=== PATIENT | male | born 1975 | race Caucasian/White ===

== ENCOUNTER 2020-07-29 18:17 | Observation (INO) | payer OTHER ==
--- NOTE | 2020-07-29 18:34 | ED ---
SOB HPI - General Chief Complaint: Shortness of Breath Stated Complaint: Chest Pain Time Seen by Provider: 07/29/20 18:30 Source: patient, RN notes reviewed, old records reviewed Mode of arrival: wheelchair Limitations: no limitations - History of Present Illness Initial Comments: his is a 45-year-old male DF patient Dese for evaluation of persistent shortness of breath worse when he is moving worse when he is walking worse with activity. Symptoms of been off for a couple months with multiple evaluations, patient unsure cause. Patient also developed fever recently. No significant chest pain. Otherwise no recent travel history or sick contacts no inpatient admission MD Complaint: shortness of breath, cough, anxiety -: days(s) Severity: severe Severity scale (1-10): 8 Quality: dull Consistency: constant Improves With: nothing Worsens With: lying flat, exertion, movement Known History Of: congestive heart failure Context: recent URI, anxiety, recent illness Associated Symptoms: chest pain, pain with inspiration, diaphoresis Treatments Prior to Arrival: none - Related Data Home Medications Medication Instructions Recorded Confirmed Benazepril [Lotensin] 10 mg PO DAILY 08/08/17 07/29/20 Bisoprolol-Hctz 5-6.25 mg [Ziac 1 tab PO DAILY 08/08/17 07/29/20 5-6.25 MG] Albuterol Inhaler [Ventolin Hfa 2 puff INHALATION RT-QID PRN 07/29/20 07/29/20 Inhaler] Montelukast Sodium [Singulair] 10 mg PO DAILY 07/29/20 07/29/20 Previous Rx's Medication Instructions Recorded Azithromycin [Zithromax] 500 mg PO DAILY@2100 5 Days #5 tab 07/31/20 Bumetanide [BUMEX] 1 mg PO BID@0900,1600 #60 tab 07/31/20 Cephalexin [Keflex] 500 mg PO QID #40 cap 07/31/20 Allergies Allergy/AdvReac Type Severity Reaction Status Date / Time furosemide [From Lasix] Allergy Rash/Hives Verified 07/29/20 21:16 Sulfa (Sulfonamide Allergy Rash/Hives Verified 07/29/20 21:16 Antibiotics) torsemide Allergy Rash/Hives Verified 07/29/20 21:16 Review of Systems ROS Statement: Those systems with pertinent positive or pertinent negative responses have been documented in the HPI. ROS Other: All systems not noted in ROS Statement are negative. Past Medical History Past Medical History: Hypertension, Sleep Apnea/CPAP/BIPAP Additional Past Medical History / Comment(s): pulmonary hypertension History of Any Multi-Drug Resistant Organisms: None Reported Past Surgical History: No Surgical Hx Reported Past Psychological History: No Psychological Hx Reported Smoking Status: Former smoker Past Alcohol Use History: Occasional Past Drug Use History: None Reported General Exam Limitations: no limitations General appearance: alert, in no apparent distress Head exam: Present: atraumatic, normocephalic, normal inspection Eye exam: Present: normal appearance, PERRL, EOMI. Absent: scleral icterus, conjunctival injection, periorbital swelling ENT exam: Present: normal exam, mucous membranes moist Neck exam: Present: normal inspection. Absent: tenderness, meningismus, lymphadenopathy Respiratory exam: Present: respiratory distress, rhonchi, accessory muscle use, decreased breath sounds, prolonged expiratory. Absent: wheezes, rales, stridor Cardiovascular Exam: Present: normal rhythm, tachycardia, normal heart sounds. Absent: systolic murmur, diastolic murmur, rubs, gallop, clicks GI/Abdominal exam: Present: soft, normal bowel sounds. Absent: distended, tenderness, guarding, rebound, rigid Extremities exam: Present: normal inspection, full ROM, normal capillary refill. Absent: tenderness, pedal edema, joint swelling, calf tenderness Back exam: Present: normal inspection Neurological exam: Present: alert, oriented X3, CN II-XII intact Psychiatric exam: Present: normal affect, normal mood Skin exam: Present: warm, dry, intact, normal color. Absent: rash Course Vital Signs 07/29/20 07/29/20 07/29/20 18:21 20:31 20:33 Temperature 100.4 F H 99.5 F Pulse Rate 87 72 75 Pulse Rate [ Right] Respiratory 18 20 Rate Blood Pressure 169/94 159/86 Blood Pressure [Right Arm] O2 Sat by Pulse 95 93 L Oximetry 07/29/20 07/29/20 20:48 21:03 Temperature 98.9 F Pulse Rate 74 Pulse Rate [ 91 Right] Respiratory 20 Rate Blood Pressure Blood Pressure 151/77 [Right Arm] O2 Sat by Pulse 90 L Oximetry - Reevaluation(s) Reevaluation #1: medical records reviewed Patient still significantly short of breath here in the ER spoke with patient regarding findings and results, questions answered - Consultations Consultation #1: spoke with Dr. Muñoz agrees to admit the patient Medical Decision Making - Medical Decision Making 45 male persistent shortness of breath history of same. Patient is multiple evaluations in the past for shortness of breath, worsen prior with positive fever. Patient be admitted, pneumonia CHF exacerbation pulmonary edema - Lab Data Result diagrams: 07/29/20 18:42 07/31/20 09:47 Lab Results 07/29/20 07/29/20 07/29/20 Range/Units 18:42 18:42 18:42 WBC 9.0 (3.8-10.6) k/uL RBC 4.20 L (4.30-5.90) m/uL Hgb 12.3 L (13.0-17.5) gm/dL Hct 38.8 L (39.0-53.0) % MCV 92.4 (80.0-100.0) fL MCH 29.4 (25.0-35.0) pg MCHC 31.8 (31.0-37.0) g/dL RDW 13.6 (11.5-15.5) % Plt Count 248 (150-450) k/uL Neutrophils % 64 % Lymphocytes % 18 % Monocytes % 10 % Eosinophils % 3 % Basophils % 0 % Neutrophils # 5.8 (1.3-7.7) k/uL Lymphocytes # 1.7 (1.0-4.8) k/uL Monocytes # 0.9 (0-1.0) k/uL Eosinophils # 0.3 (0-0.7) k/uL Basophils # 0.0 (0-0.2) k/uL PT 9.6 (9.0-12.0) sec INR 0.9 (<1.2) APTT 24.6 (22.0-30.0) sec D-Dimer 1.30 H (<0.60) mg/L FEU Sodium 139 (137-145) mmol/L Potassium 4.3 (3.5-5.1) mmol/L Chloride 105 (98-107) mmol/L Carbon Dioxide 28 (22-30) mmol/L Anion Gap 6 mmol/L BUN 23 H (9-20) mg/dL Creatinine 1.03 (0.66-1.25) mg/dL Est GFR (CKD-EPI)AfAm >90 (>60 ml/min/1.73 sqM) Est GFR (CKD-EPI)NonAf 87 (>60 ml/min/1.73 sqM) Glucose 98 (74-99) mg/dL Plasma Lactic Acid Nuno (0.7-2.0) mmol/L Calcium 9.2 (8.4-10.2) mg/dL Magnesium 2.0 (1.6-2.3) mg/dL Ferritin 387.7 H (22.0-322.0) ng/mL Total Bilirubin 0.7 (0.2-1.3) mg/dL AST 87 H (17-59) U/L ALT 95 H (4-49) U/L Alkaline Phosphatase 95 (38-126) U/L Lactate Dehydrogenase 699 H (313-618) U/L C-Reactive Protein 46.7 H (<10.0) mg/L NT-Pro-B Natriuret Pep pg/mL Total Protein 7.1 (6.3-8.2) g/dL Albumin 3.9 (3.5-5.0) g/dL Procalcitonin (0.02-0.09) ng/mL Coronavirus (PCR) (Not Detected) 07/29/20 07/29/20 07/29/20 Range/Units 18:42 18:42 18:42 WBC (3.8-10.6) k/uL RBC (4.30-5.90) m/uL Hgb (13.0-17.5) gm/dL Hct (39.0-53.0) % MCV (80.0-100.0) fL MCH (25.0-35.0) pg MCHC (31.0-37.0) g/dL RDW (11.5-15.5) % Plt Count (150-450) k/uL Neutrophils % % Lymphocytes % % Monocytes % % Eosinophils % % Basophils % % Neutrophils # (1.3-7.7) k/uL Lymphocytes # (1.0-4.8) k/uL Monocytes # (0-1.0) k/uL Eosinophils # (0-0.7) k/uL Basophils # (0-0.2) k/uL PT (9.0-12.0) sec INR (<1.2) APTT (22.0-30.0) sec D-Dimer (<0.60) mg/L FEU Sodium (137-145) mmol/L Potassium (3.5-5.1) mmol/L Chloride (98-107) mmol/L Carbon Dioxide (22-30) mmol/L Anion Gap mmol/L BUN (9-20) mg/dL Creatinine (0.66-1.25) mg/dL Est GFR (CKD-EPI)AfAm (>60 ml/min/1.73 sqM) Est GFR (CKD-EPI)NonAf (>60 ml/min/1.73 sqM) Glucose (74-99) mg/dL Plasma Lactic Acid Nuno 1.2 (0.7-2.0) mmol/L Calcium (8.4-10.2) mg/dL Magnesium (1.6-2.3) mg/dL Ferritin (22.0-322.0) ng/mL Total Bilirubin (0.2-1.3) mg/dL AST (17-59) U/L ALT (4-49) U/L Alkaline Phosphatase (38-126) U/L Lactate Dehydrogenase (313-618) U/L C-Reactive Protein (<10.0) mg/L NT-Pro-B Natriuret Pep pg/mL Total Protein (6.3-8.2) g/dL Albumin (3.5-5.0) g/dL Procalcitonin 0.11 H (0.02-0.09) ng/mL Coronavirus (PCR) Not Detected (Not Detected) 07/29/20 Range/Units 18:42 WBC (3.8-10.6) k/uL RBC (4.30-5.90) m/uL Hgb (13.0-17.5) gm/dL Hct (39.0-53.0) % MCV (80.0-100.0) fL MCH (25.0-35.0) pg MCHC (31.0-37.0) g/dL RDW (11.5-15.5) % Plt Count (150-450) k/uL Neutrophils % % Lymphocytes % % Monocytes % % Eosinophils % % Basophils % % Neutrophils # (1.3-7.7) k/uL Lymphocytes # (1.0-4.8) k/uL Monocytes # (0-1.0) k/uL Eosinophils # (0-0.7) k/uL Basophils # (0-0.2) k/uL PT (9.0-12.0) sec INR (<1.2) APTT (22.0-30.0) sec D-Dimer (<0.60) mg/L FEU Sodium (137-145) mmol/L Potassium (3.5-5.1) mmol/L Chloride (98-107) mmol/L Carbon Dioxide (22-30) mmol/L Anion Gap mmol/L BUN (9-20) mg/dL Creatinine (0.66-1.25) mg/dL Est GFR (CKD-EPI)AfAm (>60 ml/min/1.73 sqM) Est GFR (CKD-EPI)NonAf (>60 ml/min/1.73 sqM) Glucose (74-99) mg/dL Plasma Lactic Acid Nuno (0.7-2.0) mmol/L Calcium (8.4-10.2) mg/dL Magnesium (1.6-2.3) mg/dL Ferritin (22.0-322.0) ng/mL Total Bilirubin (0.2-1.3) mg/dL AST (17-59) U/L ALT (4-49) U/L Alkaline Phosphatase (38-126) U/L Lactate Dehydrogenase (313-618) U/L C-Reactive Protein (<10.0) mg/L NT-Pro-B Natriuret Pep 425 pg/mL Total Protein (6.3-8.2) g/dL Albumin (3.5-5.0) g/dL Procalcitonin (0.02-0.09) ng/mL Coronavirus (PCR) (Not Detected) - EKG Data -: EKG Interpreted by Me (EKG os sinus rhythm 82 [place] 144 QRS is 102 QTC 4:30) - Radiology Data Radiology results: report reviewed (chest x-rays positive for pulmonary edema CHF and underlying pneumonia), image reviewed Critical Care Time Critical Care Time: Yes Total Critical Care Time: 31 Disposition Clinical Impression: Community acquired pneumonia, Acute pulmonary edema, Sleep apnea, Pleural effusion, Fever Disposition: ADMITTED IP TO THIS HOSP Condition: Fair Is patient prescribed a controlled substance at d/c from ED?: No
--- NOTE | 2020-07-29 19:03 | XR ---
EXAMINATION TYPE: XR chest 1V portable DATE OF EXAM: 07/29/2020 COMPARISON: 09/06/2013 HISTORY: Chest pain. Pneumonia. TECHNIQUE: FINDINGS: There is some pulmonary interstitial edema. There is slight blunting of the costophrenic an gles. There are chest leads. Heart is borderline enlarged. IMPRESSION: There is new pulmonary interstitial edema and small pleural effusions compared to old exa m. This could be congestive heart failure. Acute pneumonia also possible.
[2020-07-29 19:05] LABS: INR 0.9 (<1.2); Partial Thromboplastin Time 24.6 sec (22.0-30.0); Prothrombin Time 9.6 sec (9.0-12.0)
[2020-07-29 19:08] LABS: ALT 95 U/L (4-49); AST 87 U/L (17-59); Albumin 3.9 g/dL (3.5-5.0); Alkaline Phosphatase 95 U/L (38-126); Anion Gap 6 mmol/L; Blood Urea Nitrogen 23 mg/dL (9-20); Calcium 9.2 mg/dL (8.4-10.2); Carbon Dioxide 28 mmol/L (22-30); Chloride 105 mmol/L (98-107); Glucose 98 mg/dL (74-99); LDH 699 U/L (313-618); Potassium 4.3 mmol/L (3.5-5.1); Sodium 139 mmol/L (137-145); Total Bilirubin 0.7 mg/dL (0.2-1.3)
[2020-07-29 19:11] LABS: D-Dimer 1.3 mg/L FEU (<0.60)
[2020-07-29 19:15] LABS: Basophils % (A) 0 %; Eosinophils # (A) 0.3 k/uL (0-0.7); Eosinophils % (A) 3 %; HCT 38.8 % (39.0-53.0); HGB 12.3 gm/dL (13.0-17.5); Lymphocytes # (A) 1.7 k/uL (1.0-4.8); Lymphocytes % (A) 18 %; MCH 29.4 pg (25.0-35.0); MCHC 31.8 g/dL (31.0-37.0); MCV 92.4 fL (80.0-100.0); Mean Platelet Volume 7.7; Monocytes # (A) 0.9 k/uL (0-1.0); Monocytes % (A) 10 %; Neutrophils # (A) 5.8 k/uL (1.3-7.7); Neutrophils % (A) 64 %; Platelet Count 248 k/uL (150-450); RDW 13.6 % (11.5-15.5)
[2020-07-29 19:27] LABS: African American GFR (CKD) >90 (>60 ml/min/1.73 sqM); C Reactive Protein 46.7 mg/L (<10.0); Non-African American GFR(CKD) 87 (>60 ml/min/1.73 sqM); Total Protein 7.1 g/dL (6.3-8.2)
[2020-07-29] MEDS ORDERED: AZITHROMYCIN 500 MG in SODIUM CHLORIDE 0.9% 250 ML IVPB STA (20:11)
[2020-07-29] MEDS ORDERED: IPRATROPIUM-ALBUTEROL 3 ML NEB INHALATION PRN (20:11)
[2020-07-29] MEDS ORDERED: PNEUMONIA PROTOCOL UTILIZED 1 EACH MISC PO PRN (20:11)
[2020-07-29] MEDS ORDERED: IPRATROPIUM-ALBUTEROL 3 ML NEB INHALATION STA (20:11)
[2020-07-29] MEDS ORDERED: SODIUM CHLORIDE 0.9% 1,000 ML IV SCH (20:15)
[2020-07-29] MEDS ORDERED: AZITHROMYCIN 500 MG in SODIUM CHLORIDE 0.9% 250 ML IVPB ONE (22:00)
[2020-07-30 04:32] LABS: Ferritin 387.7 ng/mL (22.0-322.0)
[2020-07-30] MEDS: TIOTROPIUM 18 MCG/PUFF INHALER INHALATION SCH (07:36)
[2020-07-30] MEDS: ALBUTEROL HFA INHALER INHALATION SCH ×4 (07:36→19:30)
[2020-07-30] MEDS: ENOXAPARIN 40 MG/0.4 ML SYRINGE SQ SCH (09:06)
--- NOTE | 2020-07-30 10:00 | ECHOF ---
Referral Reason:chf MEASUREMENTS -------- HEIGHT: 172.7 cm WEIGHT: 138.3 kg BP: 127/75 RVIDd: 3.2 cm (< 3.3) IVSd: 1.6 cm (0.6 - 1.1) LVIDd: 4.9 cm (3.9 - 5.3) LVPWd: 1.5 cm (0.6 - 1.1) IVSs: 2.0 cm LVIDs: 3.2 cm LVPWs: 2.1 cm LA Diam: 3.6 cm (2.7 - 3.8) LAESV Index (A-L): 22.38 ml/m Ao Diam: 3.1 cm (2.0 - 3.7) AV Cusp: 2.3 cm (1.5 - 2.6) MV EXCURSION: 23.601 mm (> 18.000) MV EF SLOPE: 132 mm/s (70 - 150) EPSS: 1.3 cm MV E Miguel Ángel: 1.34 m/s MV DecT: 185 ms MV A Miguel Ángel: 0.73 m/s MV E/A Ratio: 1.83 RAP: 5.00 mmHg RVSP: 40.70 mmHg FINDINGS -------- Sinus rhythm. This was a technically adequate study. The left ventricular size is normal. There is moderate concentric left ventricular hypertrophy. O verall left ventricular systolic function is normal with, an EF between 60 - 65 %. The right ventricle is normal in size. Normal LA size by volume 22+/-6 ml/m2. The right atrium is normal in size. Interatrial and interventricular septum intact. The aortic valve is trileaflet and appears structurally normal. The mitral valve is normal. Mild tricuspid regurgitation present. There is mild pulmonary hypertension. The right ventricular systolic pressure, as measured by Doppler, is 40.70mmHg. The pulmonic valve was not well visualized. The aortic root size is normal. IVC Not well visulized. There is no pericardial effusion. CONCLUSIONS -------- 1. The left ventricular size is normal. 2. There is moderate concentric left ventricular hypertrophy. 3. Overall left ventricular systolic function is normal with, an EF between 60 - 65 %. 4. Mild tricuspid regurgitation present. 5. There is mild pulmonary hypertension. 6. The right ventricular systolic pressure, as measured by Doppler, is 40.70mmHg. 7. There is no pericardial effusion. REPAIRER HA[employer]PR[employer]: Sindy Scott RDCS
--- NOTE | 2020-07-30 11:19 | XR ---
EXAMINATION TYPE: XR chest 2V DATE OF EXAM: 07/30/2020 CLINICAL HISTORY: pneumonia. TECHNIQUE: Frontal and lateral view of the chest. COMPARISON: 07/29/2020 chest radiograph FINDINGS: Cardiomegaly. Redemonstrated pulmonary edema. Mild blunting of the costophrenic angles is r edemonstrated. No pneumothorax. The osseous structures are intact. IMPRESSION: Findings most likely represent CHF. Pulmonary edema and small pleural effusions are kyara lar to 07/29/2020.
[2020-07-30] MEDS: lisinopriL 10 MG TAB PO SCH (12:05)
--- NOTE | 2020-07-30 12:51 | P.CNPUL ---
History of Present Illness Consult date: 07/30/20 Reason for consult: dyspnea History of present illness: Morbidly obese 45-year-old male patient with known history of obstructive sleep apnea and secondary pulmonary hypertension who came into the hospital because of worsening shortness of breath. The patient was seen in the past [facility]. He was also seen at [facility] for pulmonary hypertension and he was told to have secondary pulmonary hypertension. In any rate, the patient came into the hospital because of worsening shortness of breath over the past few days. He shortness of breath was mainly exertional. No significant cough sputum production chest tightness or wheezing. He has chronic edema lower extremities with interval worsening in the leg swelling. No nausea. No vomiting. No abdominal pain. No chest pain. Altered mentation. He had a low-grade fever up 100.4. He denies having any exposure to coronavirus Covid 19 is at 1.03 and the d-dimer is at 1.3. A CT angios the was ordered. Echocardiogram is in progress. Coronavirus screen via PCR is pending. ProBNP level is 425. LDH is at 699. AST is 87 ALT is 97 with a total bilirubin of 0.7. Rest of the electrodes are all within normal limits. Currently, he is on a combination of Rocephin and Zithromax and he is an ex-smoker. Review of Systems Constitutional: Reports fatigue Eyes: denies as per HPI, denies blurred vision, denies bulging eye, denies decreased vision, denies diplopia, denies discharge, denies dry eye, denies irritation, denies itching, denies pain, denies photophobia, denies loss of peripheral vision, denies loss of vision, denies tunnel vision/blind spots Ears: right: decreased hearing, deny: ear discharge, earache, tinnitus Ears, nose, mouth and throat: Denies headache, Denies sore throat Breasts: absent: as per HPI, gynecomastia Cardiovascular: Reports decreased exercise tolerance, Reports dyspnea on exertion, Reports leg edema Respiratory: Reports dyspnea, Reports sleep apnea, Reports snoring Genitourinary: Reports as per HPI Musculoskeletal: Reports as per HPI Musculoskeletal: bilateral: ankle swelling, absent: ankle pain, ankle stiffness Integumentary: Reports as per HPI Neurological: Reports as per HPI Psychiatric: Reports as per HPI Endocrine: Reports as per HPI Hematologic/Lymphatic: Reports as per HPI Allergic/Immunologic: Reports as per HPI Past Medical History Past Medical History: Hypertension, Sleep Apnea/CPAP/BIPAP Additional Past Medical History / Comment(s): obesity, GWYN , Secondary pulmonary hypertension, SVT (identified through an event monitor) History of Any Multi-Drug Resistant Organisms: None Reported Past Surgical History: No Surgical Hx Reported Past Psychological History: No Psychological Hx Reported Smoking Status: Former smoker Past Alcohol Use History: Occasional Additional Past Alcohol Use History / Comment(s): accasional drink Past Drug Use History: None Reported Medications and Allergies Home Medications Medication Instructions Recorded Confirmed Type Benazepril [Lotensin] 10 mg PO DAILY 08/08/17 07/29/20 History Bisoprolol-Hctz 5-6.25 mg [Ziac 1 tab PO DAILY 08/08/17 07/29/20 History 5-6.25] Albuterol Inhaler [Ventolin Hfa 2 puff INHALATION RT-QID PRN 07/29/20 07/29/20 History Inhaler] Bumetanide 1 mg PO DAILY 07/29/20 07/29/20 History Montelukast Sodium [Singulair] 10 mg PO DAILY 07/29/20 07/29/20 History Allergies Allergy/AdvReac Type Severity Reaction Status Date / Time furosemide [From Lasix] Allergy Rash/Hives Verified 07/29/20 21:16 Sulfa (Sulfonamide Allergy Rash/Hives Verified 07/29/20 21:16 Antibiotics) torsemide Allergy Rash/Hives Verified 07/29/20 21:16 Physical Exam Vitals: Vital Signs Temp Pulse Pulse Resp BP BP BP 07/30/20 08:57 98.3 F 74 16 163/95 07/30/20 03:13 99 F 74 16 152/91 127/75 07/29/20 21:03 98.9 F 91 20 151/77 07/29/20 20:48 74 07/29/20 20:33 99.5 F 75 20 159/86 07/29/20 20:31 72 07/29/20 18:21 100.4 F H 87 18 169/94 Pulse Ox 07/30/20 08:57 95 07/30/20 03:13 95 07/29/20 21:03 90 L 07/29/20 20:48 10/26/20 20:33 93 L 07/29/20 20:31 07/29/20 18:21 95 Intake and Output 07/29/20 07/30/20 07/30/20 22:59 06:59 14:59 Intake Total 300 Balance 300 Intake: Oral 300 Other: Voiding Method Toilet Toilet Weight 138.346 kg Results Morbidly obese, comfortable and the patient is not having any acute respiratory distress. His BMI 46.4. Head exam was generally normal. There was no scleral icterus or corneal arcus. Mucous membranes were moist. Neck is supple short and there is significant crowding of the posterior oropharynx with a Mallampati class IV. No goiter or neck masses. Lungs sounds are diminished bilaterally especially in lung bases. Few rales in the lung bases. Otherwise the breath sounds are equal and symmetrical. Cardiac exam revealed the PMI to be normally situated and sized. The rhythm was regular and no extrasystoles were noted during several minutes of auscultation. The first and second heart sounds were normal and physiologic splitting of the second heart sound was noted. There were no murmurs, rubs, clicks, or gallops. Abdominal exam revealed normal bowel sounds. The abdomen was soft, non-tender, and without masses, organomegaly, or appreciable enlargement of the abdominal aorta. Organs cannot be accurately palpated as the patient is morbidly obese. There is no ascites. Extremities revealed +1 pitting edema and there is no cyanosis or clubbing. No open wounds or sores. Neurologically, the patient is awake and alert and the patient does not have any focal neurological deficit. Cranial nerves are essentially intact. Examination of the skin revealed no evidence of significant rashes, suspicious appearing nevi or other concerning lesions. - Laboratory Findings CBC and BMP: 07/29/20 18:42 07/29/20 18:42 PT/INR, D-dimer PT 9.6 sec (9.0-12.0) 07/29/20 18:42 INR 0.9 (<1.2) 07/29/20 18:42 D-Dimer 1.30 mg/L FEU (<0.60) H 07/29/20 18:42 Abnormal lab findings: Abnormal Labs 07/29/20 07/29/20 07/29/20 18:42 18:42 18:42 RBC 4.20 L Hgb 12.3 L Hct 38.8 L D-Dimer 1.30 H BUN 23 H Ferritin 387.7 H AST 87 H ALT 95 H Lactate Dehydrogenase 699 H C-Reactive Protein 46.7 H - Diagnostic Findings Chest x-ray: image reviewed Assessment and Plan Plan: 1 acute on chronic dyspnea likely on the basis of CHF with some increased fluid overload and developed of small bilateral pleural effusion. Superimposed pulmonary infection/pneumonia cannot be completely excluded. Chest x-ray was reviewed and the patient will need acomputed tomography scan of the chest to further characterize these abnormalities. He is having a low-grade fever. ProBNP level is mildly elevated. White cell count is normal. 2 acute hypoxic respiratory failure and the patient is currently on 2 L of oxygen by nasal cannula 3 low-grade fever 4 morbid obesity with a BMI of 46.4 5 obstructive sleep apnea, maintaining compliance to CPAP therapy on outpatient basis 6 previous history of SVT 7 previous history of secondary pulmonary potential related to the above- mentioned comorbidities 8 hypertension Plan Start the patient on Bumex 1 mg every 12 hours IV Cover the patient become initial Rocephin and Zithromax Check pro calcitonin level Awaiting coronavirus covid 19 screen by PCR Echocardiogram to assess LV function pulmonary hypertension CTA of the chest Lovenox for DVT prophylaxis We'll continue to follow.
--- NOTE | 2020-07-30 12:58 | CT ---
EXAMINATION TYPE: CT angio chest DATE OF EXAM: 07/30/2020 COMPARISON: Chest x-ray 07/30/2020 HISTORY: SOB, cough CT DLP: 1053 mGycm Automated exposure control for dose reduction was used. CONTRAST: CTA scan of the thorax is performed with IV Contrast, patient injected with 100 mL of Isovue 370, pul monary embolism protocol. MIP images are created and reviewed. 3D reconstructed images are created on an independent workstation and reviewed. FINDINGS: LUNGS: The lungs are showing bilateral areas of groundglass opacity especially in the perihilar locat ions, interstitial prominence is also present. There are bilateral pleural effusions. There are areas of somewhat nodularity in the lungs, axial image 94 peripherally in the right lower lobe, axial imag e 81 right lower lobe AORTA: No additional significant abnormality is seen. MEDIASTINUM: There is satisfactory enhancement of the pulmonary artery and its branches, there is no CT evidence for pulmonary embolism. There is borderline enlarged prevascular node which is low dense , axial image #45, shotty nodes are present in the mediastinum. No pericardial effusion is seen. OTHER: Liver shows low density consistent with hepatic steatosis. IMPRESSION: FINDINGS ARE CONSISTENT WITH PATIENT'S CHEST X-RAY FINDINGS, CORRELATE FOR CONGESTIVE HEART FAILURE W ITH BILATERAL PLEURAL EFFUSIONS. FOLLOW-UP TO RESOLUTION IS RECOMMENDED. ABNORMAL NODE IN THE MEDIAST INUM MAY BE REACTIVE. CORRELATE FOR HEPATIC STEATOSIS.
[2020-07-30] MEDS: BUMETANIDE 1 MG TAB PO SCH (16:22)
--- NOTE | 2020-07-30 17:19 | PN ---
PROGRESS NOTE DATE OF SERVICE: 07/30/2020 CHIEF COMPLAINT: Shortness of breath and congestive heart failure. HISTORY OF PRESENT ILLNESS: This gentleman is doing slightly better, but he is still short of breath. He has had no chest pain. PHYSICAL EXAMINATION: Chest demonstrates poor breath sounds at the bases with scattered rales. Cardiac exam demonstrates sinus rhythm. The abdomen is protuberant and there are no masses or visceromegaly. Extremities are normal. IMPRESSION: 1. Congestive heart failure. 2. Hypertension. 3. Sleep apnea. 4. Pleural effusions. 5. Low-grade fever. PLAN: Continue with IV fluids and empirical antibiotics while waiting for further evaluation. MMODL / IJN: [id number] /
--- NOTE | 2020-07-30 17:49 | HP ---
HISTORY AND PHYSICAL CHIEF COMPLAINT: Shortness of breath. HISTORY OF PRESENT ILLNESS: This is another admission for this 45-year-old white male. He has been having problems with shortness of breath, fatigue and difficulty with exertion. He was worked up in town and was felt to have pulmonary hypertension. He was referred to Cardiology at [facility] and they thought that possibly this was not his diagnosis. He is going through his workup with them. In the last week or so, he has been getting increasingly short of breath, particularly with very minimal exertion. He has had no chest pain and he has had no fever, cough, sputum production, hemoptysis, pleurisy, significant edema, etc. He then noticed that he felt warm, and he had a temperature 99.4. The next day it went up to 100. He came to emergency room, where this picture is most compatible with heart failure. He had small bilateral pleural effusions and increased lung markings on x-ray. He had no chest pain. He was swabbed for COVID-19. He has had no myalgias, anosmia, ageusia, etc. REVIEW OF SYSTEMS: He has had no other symptoms. He has had no focal neurologic problems, abdominal pain, nausea, vomiting, hematemesis, melena, hematochezia, jaundice, hepatitis, cirrhosis, renal failure, frequency, urgency, dysuria, diabetes, etc. Past medical history, family history, and personal and social histories are all otherwise unremarkable or noncontributory. He is ALLERGIC TO SULFA AND LASIX. He has been on montelukast 10 mg once a day, Ziac 5-6.25 once a day, torsemide 20 mg 2 tablets a day, Ventolin HFA, and benazepril 10 mg once a day. He has had no prior surgery. He used to smoke but he has quit. PHYSICAL EXAMINATION: Blood pressure is 152/96 with a pulse of 90, respirations of 35. He is afebrile. In general, he appeared to be overweight. Face was flushed. Head, ears, eyes, nose, mouth and throat were otherwise normal. Neck veins could not be assessed. Chest demonstrated decreased breath sounds with rales at both bases. Cardiac exam demonstrated sinus rhythm and no murmurs or extra sounds. The abdomen was protuberant and soft and there were no masses or tenderness. Bowel sounds were present. Extremities were normal. There was no significant edema. He is admitted to the hospital with the diagnoses: 1. Acute congestive heart failure. 2. Chronic congestive heart failure, diastolic. 3. Low-grade fever. 4. History of sleep apnea. 5. Bilateral pleural effusions. 6. Hypertension. PLAN: 1. Bed rest. 2. IV fluids. 3. Diuresis. 4. Echocardiogram. 5. COVID-19 PCR swab. 6. Cardiology referral. MMODL / IJN: [id number] /
[2020-07-30] MEDS ORDERED: AZITHROMYCIN 500 MG TAB PO SCH (21:00)
[2020-07-31 07:18] VITALS: RESP 16; TEMP 98.5
[2020-07-31] MEDS: ENOXAPARIN 40 MG/0.4 ML SYRINGE SQ SCH (07:26)
[2020-07-31] MEDS: lisinopriL 10 MG TAB PO SCH (07:27)
[2020-07-31] MEDS: BUMETANIDE 1 MG TAB PO SCH (07:27)
[2020-07-31] MEDS: ALBUTEROL HFA INHALER INHALATION SCH ×3 (07:30→16:11)
[2020-07-31] MEDS: TIOTROPIUM 18 MCG/PUFF INHALER INHALATION SCH (07:31)
[2020-07-31] MEDS ORDERED: MONTELUKAST 10 MG TAB PO SCH (09:00)
[2020-07-31] MEDS ORDERED: BISOPROLOL-HCTZ 5-6.25 MG 1 EACH TAB PO SCH (09:00)
[2020-07-31] MEDS ORDERED: BUMETANIDE 1 MG TAB PO SCH (09:00)
--- NOTE | 2020-07-31 09:25 | CONS ---
CONSULTATION Mr. Bob is a 45-year-old gentleman with history of obstructive sleep apnea, who is admitted to the hospital with increasing shortness of breath. Patient claimed that he has been short of breath since December. Mostly with exertional shortness of breath initially. Apparently, he was evaluated in [facility] office with a stress test which was negative for ischemia. Subsequently, also went to the [facility] for further evaluation. The patient was found to have some pulmonary hypertension, but was felt to be secondary to obesity and other factors not primary pulmonary hypertension. He is scheduled to have a cardiac catheterization in August. Over the last several days, patient has noticed increasing shortness of breath and pedal edema. He also had mild fever. Complains of mild cough. Patient because of those symptoms, came to the emergency room. Chest x-ray showed evidence of pulmonary venous congestion. He is admitted to the hospital for possible pneumonia and CHF. He had a chest x-ray and also CT scan consistent with pulmonary vascular congestion and some mild pleural effusion. The patient was initiated on Bumex by Pulmonary. He was diuresing and he seemed to be slightly better. The liver enzymes are slightly elevated. The LDH is elevated. ProBNP is within normal range. The patient was also started on antibiotic therapy. At this point, an echocardiogram was also performed. This showed normal LV function with mild pulmonary hypertension. The etiology of his symptoms are not entirely clear. Will continue current medical therapy. Further recommendations depend upon the clinical course. COVID testing is at this time pending. REVIEW OF SYSTEMS: As per the chart. PAST MEDICAL HISTORY: Significant for hypertension, sleep apnea, secondary pulmonary hypertension. History of SVT. No history of previous myocardial infarction. MEDICATIONS: Prior to admission include Lotensin 10 mg daily, bisoprolol hydrochlorothiazide 5/6.25 mg daily, albuterol inhaler, Bumex 1 mg daily, and also Singulair 10 mg daily. Allergic to LASIX, SULFA and TORSEMIDE. Rest of the information available on the chart. PHYSICAL EXAMINATION: At this time reveals stable visually built gentleman who is alert, oriented does not appear to be in any acute distress. His temperatures have been normal since admission. Respirations are about 16-18, blood pressure 130/80. Oxygen saturations have been 97 on 2 L. NECK: Supple. Difficult to assess for JVD. HEART: S1 and S2. LUNGS: Appear to be clear. ABDOMEN: Soft. Pedal edema was present. EKG showed sinus rhythm and a sinus tachycardia with incomplete right bundle branch block pattern. FINAL IMPRESSION: 1. Increasing shortness of breath with chest x-ray evidence of possible CHF. His echocardiogram is normal and proBNP is within normal limits. 2. Rule out pneumonia. 3. Mild pulmonary hypertension. 4. Sleep apnea. 5. Obesity. Continue current medical therapy. Further recommendations depend upon the clinical course and the response to the treatment. MMODL / IJN: [id number] /
[2020-07-31] MEDS: IOPAMIDOL CONTRAST (ORAL USE) VIAL PO PRN ×2 (09:33→10:26)
[2020-07-31 10:20] LABS: African American GFR (CKD) >90 (>60 ml/min/1.73 sqM); Anion Gap 9 mmol/L; Blood Urea Nitrogen 21 mg/dL (9-20); Calcium 8.8 mg/dL (8.4-10.2); Carbon Dioxide 27 mmol/L (22-30); Chloride 103 mmol/L (98-107); Glucose 142 mg/dL (74-99); Non-African American GFR(CKD) 89 (>60 ml/min/1.73 sqM); Sodium 139 mmol/L (137-145)
--- NOTE | 2020-07-31 11:48 | CT ---
EXAMINATION TYPE: CT abdomen pelvis w con DATE OF EXAM: 07/31/2020 COMPARISON: CT abdomen and pelvis August 08, 2017 HISTORY: Elevated LFTS and LDH CT DLP: 2876 mGycm, Automated Exposure Control for Dose Reduction was Utilized. CONTRAST: CT scan of the abdomen and pelvis is performed with oral and with IV Contrast, patient injected with 100 ml mL of Isovue 300. FINDINGS: LUNG BASES: Small bilateral pleural effusions and associated compressive atelectasis on current study . LIVER/GB: Liver remains markedly hypodense relative to the spleen consistent with diffuse fatty infil tration. Liver size stable and mildly enlarged. PANCREAS: No significant abnormality is seen. SPLEEN: No significant abnormality is seen. ADRENALS: No significant abnormality is seen. KIDNEYS: Symmetrical cortical medullary uptake and excretion of both kidneys without hydronephrosis s een bilaterally. BOWEL: The oral contrast reaches the level of the proximal ileal loops in the lower abdomen. No suspi cious small or large bowel dilatation. PROSTATE/SEMINAL VESICLES: Prostate gland normal in size with adjacent left-sided pelvic phleboliths. LYMPH NODES: No new greater than 1cm abdominal or pelvic lymph nodes are appreciated. Stable promine nt and slightly enlarged bilateral pelvic iliac lymph nodes for reference right sided lymph node shantell ures 1.6 x 1.3 cm axial image 74 not significantly changed from prior. OSSEOUS STRUCTURES: Straightening of lumbar spine with moderate multilevel spurring and disc space na rrowing. [id number] spurring and joint space loss in both hips OTHER: No significant additional abnormality is seen. IMPRESSION: Persistent mild hepatomegaly and marked fatty infiltration of liver. No new concerning ma ss or ductal dilatation. No significant change from prior study.
--- NOTE | 2020-07-31 12:04 | P.PN ---
Subjective Progress Note Date: 07/31/20 07/31/2020, the patient is feeling better. Less short of breath compared to yesterday. Doppler of the lower extremity was negative. The cornejo virus Covid 19 testing was negative. The patient was started on IV Bumex. The patient was also given accommodation Rocephin and Zithromax. I checked his CPAP machine and the patient has an APAP machine which is adjusted a minimum pressure of 8 and a maximum pressure of 18 and based on the compliance of the patient has been averaging around 11 hours of BiPAP use overnight with minimal amount of leak and the patient has an AHI while on treatment down to 3.0. This is indicating successful treatment. Echocardiogram was noted. The patient has preserved LV function with mild degree of pulmonary hypertension with a PA pressure of 40 mmHg. The patient is supposed to undergo a right-sided cardiac catheter [facility]. He has no specific complaints otherwise for now. Objective - Vital Signs Vital signs: Vital Signs Temp 98.5 F 07/31/20 07:17 Pulse 81 07/31/20 07:17 Resp 16 07/31/20 07:17 BP 147/92 07/31/20 07:17 Pulse Ox 96 07/31/20 07:17 Intake & Output 07/30/20 07/31/20 07/31/20 18:59 06:59 18:59 Intake Total 800 Balance 800 Intake: Oral 800 Other: Voiding Method Toilet Toilet Toilet # Voids 1 2 - Exam Morbidly obese, comfortable and the patient is not having any acute respiratory distress. His BMI 46.4. Head exam was generally normal. There was no scleral icterus or corneal arcus. Mucous membranes were moist. Neck is supple short and there is significant crowding of the posterior oropharynx with a Mallampati class IV. No goiter or neck masses. Lungs sounds are diminished bilaterally especially in lung bases. Few rales in the lung bases. Otherwise the breath sounds are equal and symmetrical. Cardiac exam revealed the PMI to be normally situated and sized. The rhythm was regular and no extrasystoles were noted during several minutes of auscultation. The first and second heart sounds were normal and physiologic splitting of the second heart sound was noted. There were no murmurs, rubs, clicks, or gallops. Abdominal exam revealed normal bowel sounds. The abdomen was soft, non-tender, and without masses, organomegaly, or appreciable enlargement of the abdominal aorta. Organs cannot be accurately palpated as the patient is morbidly obese. There is no ascites. Extremities revealed +1 pitting edema and there is no cyanosis or clubbing. No open wounds or sores. Neurologically, the patient is awake and alert and the patient does not have any focal neurological deficit. Cranial nerves are essentially intact. Examination of the skin revealed no evidence of significant rashes, suspicious appearing nevi or other concerning lesions. - Labs CBC & Chem 7: 07/29/20 18:42 07/31/20 09:47 Labs: Abnormal Lab Results - Last 24 Hours (Table) 07/29/20 07/31/20 Range/Units 18:42 09:47 BUN 21 H (9-20) mg/dL Glucose 142 H (74-99) mg/dL Procalcitonin 0.11 H (0.02-0.09) ng/mL Microbiology - Last 24 Hours (Table) 07/29/20 18:31 Blood Culture - Preliminary Blood No Growth after 24 hours Assessment and Plan Plan: 1 acute on chronic dyspnea likely on the basis of CHF with some increased fluid overload and developed of small bilateral pleural effusion. Superimposed pu lmonary infection/pneumonia cannot be completely excluded. Chest x-ray was reviewed and the patient will need acomputed tomography scan of the chest to further characterize these abnormalities. He is having a low-grade fever. ProBNP level is mildly elevated. White cell count is normal. The cornejo virus Covid 19 testing came back negative. The patient is currently being treated for pneumonia with some mild component of fluid overload. Please refer to the CAT scan of the chest. 2 acute hypoxic respiratory failure and the patient is currently on 2 L of oxygen by nasal cannula 3 low-grade fever 4 morbid obesity with a BMI of 46.4 5 obstructive sleep apnea, maintaining compliance to CPAP therapy on outpatient basis 6 previous history of SVT 7 previous history of secondary pulmonary potential related to the above- mentioned comorbidities 8 hypertension Plan Continue Bumex 1 mg every 12 hours IV Cover the patient become initial Rocephin and Zithromax Check pro calcitonin level and the level was at 0.11 Negative coronavirus covid 19 screen by PCR Echocardiogram noted a preserved LV function with mild degree of pulmonary hypertension CTA of the chest was noted Lovenox for DVT prophylaxis Clinically improving We'll continue to follow.
--- NOTE | 2020-07-31 12:37 | P.PN ---
Subjective Progress Note Date: 07/31/20 CHIEF COMPLAINT: Shortness of breath HISTORY OF PRESENT ILLNESS: Patient examined at the bedside. Patient states he is feeling much better today. Reports the shortness of breath is improving. He has reports improvement in his lower extremity edema. She remains on Bumex per pulmonary. He is also receiving antibiotics. Vital signs are stable. Creatinine 1.01 today. Coronavirus testing negative. Echocardiogram completed revealed ejection fraction between 60 and 65%, mild tricuspid regurgitation, and mild pulmonary hypertension PHYSICAL EXAM: VITAL SIGNS: Reviewed. GENERAL: Well-developed in no acute distress. NECK: Supple. No JVD or thyromegaly LUNGS: Respirations even and unlabored. Lungs diminished. HEART: Regular rate and rhythm. S1 and S2 heard. EXTREMITIES: Normal range of motion. No clubbing or cyanosis. Peripheral pulses intact. +1 bilateral lower extremity edema ASSESSMENT: Shortness of breath with findings of CHF per x-ray, possible acute diastolic congestive heart failure, BNP within normal limits Pneumonia Mild pulmonary hypertension Sleep apnea Obesity PLAN: Continue Bumex per pulmonary Daily weight Accurate intake and output Patient is scheduled for cardiac catheterization next month at [facility] Nurse practitioner note has been reviewed by physician. Signing provider agrees with the documented findings, assessment, and plan of care. Objective - Vital Signs Vital signs: Vital Signs Temp 98.5 F 07/31/20 07:17 Pulse 81 07/31/20 07:17 Resp 16 07/31/20 07:17 BP 147/92 07/31/20 07:17 Pulse Ox 96 07/31/20 07:17 Intake & Output 07/30/20 07/31/20 07/31/20 18:59 06:59 18:59 Intake Total 800 Balance 800 Intake: Oral 800 Other: Voiding Method Toilet Toilet Toilet # Voids 1 2 - Labs CBC & Chem 7: 07/29/20 18:42 07/31/20 09:47 Labs: Abnormal Lab Results - Last 24 Hours (Table) 07/29/20 07/31/20 Range/Units 18:42 09:47 BUN 21 H (9-20) mg/dL Glucose 142 H (74-99) mg/dL Procalcitonin 0.11 H (0.02-0.09) ng/mL Microbiology - Last 24 Hours (Table) 07/29/20 18:31 Blood Culture - Preliminary Blood No Growth after 24 hours
[2020-07-31 15:20] VITALS: BP 159/96; PULSE 85
[2020-07-31] MEDS ORDERED: CEPHALEXIN 500 MG CAP PO SCH (18:00)
--- NOTE | 2020-07-31 21:54 | DS ---
DISCHARGE SUMMARY CHIEF COMPLAINT: Shortness of breath and low-grade fever. HISTORY OF PRESENT ILLNESS AND PHYSICAL EXAMINATION: Details of this man's history and physical can be found in the initial workup. LABORATORY STUDIES: While he was in the hospital he had laboratory studies, details of which can be found in the laboratory section of his chart. COURSE IN THE HOSPITAL: After admission he was placed on bedrest and started on intravenous fluids and diuresis. COVID-19 swab was done. It was negative. He was seen by Cardiology and Pulmonology. As he diuresed he felt much better. He was doing well on July 31 and it was felt that he could go home. He will go home on his usual activity and diet, but he will have an increase in his diuretic. He will be seen in the office in several days. He is scheduled for a cardiac cath in [place] on August 23. FINAL DIAGNOSES: 1. Acute congestive heart failure. 2. Chronic congestive heart failure, systolic and diastolic. 3. Low-grade fever. 4. Bronchitis. OPERATIONS: None. CONSULTATIONS: 1. Cardiology. 2. Pulmonology. He is improved. MMODL / IJN: [id number] /
== END 2020-07-31 16:33 | disposition home or self-care (01) ==
LOC: EC 18:17 → 1SOBS 20:11
PROVIDERS: ADMIT Family Medicine; ATTEND Family Medicine
DX: I50.43 Acute on chronic combined systolic (congestive) and diastolic (congestive) heart failure (principal); R06.02 Shortness of breath; Z20.828 Contact with and (suspected) exposure to other viral communicable diseases; E66.01 Morbid (severe) obesity due to excess calories; F41.9 Anxiety disorder, unspecified; G47.30 Sleep apnea, unspecified; J40 Bronchitis, not specified as acute or chronic; I11.0 Hypertensive heart disease with heart failure; R50.9 Fever, unspecified; I27.29 Other secondary pulmonary hypertension; I47.1 Supraventricular tachycardia; Z79.899 Other long term (current) drug therapy; Z87.891 Personal history of nicotine dependence
CPT/HCPCS: 93005 ×2; 96365; 96366 ×3; 96367; 96372 ×2; 99285; 36415; 94640 ×5; 93306; 86803; 85379; 83880; 80053; 80048; 82728; 83605; 83615; 83735; 85025; 85610; 85730; 86140; 87040; 84145; 71045; 71046; 71275; 74177; G0378 ×3; U0003; J0456; J0696 ×3; J1650 ×2; Q9967 ×2

== ENCOUNTER 2020-11-28 12:37 | Day surgery (SDC) | payer OTHER ==
[2020-11-28] MEDS ORDERED: ALPRAZolam 0.5 MG TAB PO STA (13:30)
[2020-11-28 13:34] VITALS: BP 140/81; PULSE 80; RESP 18; TEMP 98.1
--- NOTE | 2020-11-28 16:07 | US ---
ULTRASOUND GUIDED FNA THYROID BIOPSY: CLINICAL HISTORY: Bilateral thyroid nodules FINDINGS: The procedure was explained to the patient. The risks, complications, benefits and alternatives were discussed and any questions were answered. Informed consent was obtained. Patient was placed supin e on the ultrasound table and prepped and draped in the usual sterile fashion. Case was discussed wit h the patient. Due to the depth of the nodule and inferior location of the nodules, after discussing the patient and the procedure was deferred. IMPRESSION: 1. Deferred bilateral thyroid biopsy. Recommend follow-up 3 months ultrasound to confirm stability of nodules.
== END 2020-11-28 15:00 | disposition home or self-care (01) ==
LOC: RADPROMAIN 12:37
PROVIDERS: ATTEND Family Medicine
DX: E04.1 Nontoxic single thyroid nodule (principal); Z88.2 Allergy status to sulfonamides; Z88.8 Allergy status to other drugs, medicaments and biological substances
CPT/HCPCS: 76536

== ENCOUNTER → 2020-12-30 | Outpatient (CLI) | payer OTHER ==
--- NOTE | 2020-12-30 08:32 | CT ---
EXAMINATION TYPE: CT soft tissue neck wo con DATE OF EXAM: 12/30/2020 COMPARISON: None HISTORY: Thyroid nodules CT DLP: 696.50 mGycm CONTRAST: CT scan of the neck is performed without contrast medium. The lack of contrast limits evaluation. Contrast enhanced CT of the neck was performed from the skull base through the lung apices. AIRWAY: The supraglottic, glottic, and subglottic portions of the airway appear patent and free of mass. SALIVARY GLANDS: The submandibular and parotid glands are free of mass or inflammatory process. THYROID GLAND: Vague areas of thyroid decreased attenuation measuring up to 9 mm on the right and sub centimeter size on the left. Further characterization with ultrasound is recommended. LYMPH NODES: No adenopathy seen greater than 1cm. LUNG APICES: No nodule or mass is seen. OTHER: Vascular structures are patent. No significant degenerative change of the cervical spine. N o abscess seen. IMPRESSION: Nonspecific thyroid nodules. Thyroid ultrasound and clinical correlation is advised.
== END | disposition home or self-care (01) ==
LOC: RADCTMAIN 07:49
PROVIDERS: ATTEND Family Medicine
DX: E04.2 Nontoxic multinodular goiter (principal)
CPT/HCPCS: 70490

== ENCOUNTER → 2021-02-25 | Outpatient (CLI) | payer OTHER ==
[2021-02-25 19:30] LABS: HCT 40.5 % (39.6-50.0); HGB 13.5 g/dL (13.0-17.0); MCH 29.9 pg (27.0-32.0); MCHC 33.3 g/dL (32.0-37.0); MCV 89.8 fL (80.0-97.0); Mean Platelet Volume 10.6 fL (9.5-12.2); Platelet Count 219 X 10*3/uL (140-440); RBC 4.51 X 10*6/uL (4.40-5.60); RDW 13.3 % (11.5-14.5); WBC 8.05 X 10*3/uL (4.50-10.00)
[2021-02-26 00:04] LABS: Prolactin 3.7 ng/mL (2.1-17.7)
[2021-02-26 00:12] LABS: Thyroid Peroxidase Antibodies <28.0 U/mL (0.0-60.0)
== END | disposition home or self-care (01) ==
LOC: LABWHC1 13:01
PROVIDERS: ATTEND Internal Medicine Endocrinology, Diabetes & Metabolism
DX: R53.83 Other fatigue (principal)
CPT/HCPCS: 36415; 82024; 82533; 82607; 82728; 84146; 84305; 84403; 84443; 85027; 86376

== ENCOUNTER → 2021-06-10 | Outpatient (CLI) | payer OTHER ==
--- NOTE | 2021-06-10 15:48 | XR ---
EXAMINATION TYPE: XR cervical spine comp DATE OF EXAM: 06/10/2021 COMPARISON: NONE HISTORY: Pain TECHNIQUE: Four views are submitted. FINDINGS: The odontoid is intact. There are no compression deformities. The prevertebral soft tissue structur es are within normal limits. Soft tissue ossification posteriorly. There is multilevel hypertrophic and degenerative changes. Ossification is seen along the anterior margin of C3 which may be related t o ligament. Severe degenerative disc disease C5-6 and C6-C7. Suspect foraminal encroachment both leve ls. IMPRESSION: 1. Multilevel hypertrophic and degenerative changes as discussed above. Recommend follow-up MRI..
--- NOTE | 2021-06-10 15:54 | XR ---
EXAM TYPE: LUMBAR SPINE X RAY SERIES COMPARISON: NONE HISTORY: Pain TECHNIQUE: 4 views are submitted. FINDINGS: Alignment is anatomic. The pedicles are intact. The transverse processes are intact. There is arie re multilevel degenerative disc disease with hypertrophic spurring and facet arthropathy most marked at L4-5 and L5-S1. Suspect bilateral foraminal encroachment is levels. No spondylolisthesis or spondy lolysis. IMPRESSION: 1. Severe degenerative disc disease at all levels with foraminal encroachment suspected at L4-5 and L 5-S1.
--- NOTE | 2021-06-10 15:54 | XR ---
EXAMINATION TYPE: XR knee complete bilateral DATE OF EXAM: 06/10/2021 COMPARISON: NONE HISTORY: Pain TECHNIQUE: Four views of each knee are submitted. FINDINGS: Joint spaces are preserved. Minimal spurring involving the patella bilaterally Osseous structures ar e intact. No acute fracture seen. No erosive changes. IMPRESSION: 1. Mild spurring involving the patella.
--- NOTE | 2021-06-10 15:56 | XR ---
EXAMINATION TYPE: XR pelvis AP view DATE OF EXAM: 06/10/2021 COMPARISON: NONE HISTORY: Pain The osseous structures are intact and the joint spaces are preserved. No acute fracture is seen. Vi sualized bowel gas pattern is nonspecific. There does appear to be a asymmetric sclerosis involving the right SI joint. There is degenerative change lower lumbar spine. Soft tissue calcifications are s een adjacent to the left hip and within the pelvis. Hypertrophic change of the acetabulum bilaterally . IMPRESSION: 1. Correlate for mild sacroiliitis asymmetric greater on the right. 2. Correlate for femoral acetabular impingement.
== END | disposition home or self-care (01) ==
LOC: RADXRMAIN 12:09
PROVIDERS: ATTEND Internal Medicine Rheumatology
DX: M50.323 Other cervical disc degeneration at C6-C7 level (principal); M47.812 Spondylosis without myelopathy or radiculopathy, cervical region; M76.891 Other specified enthesopathies of right lower limb, excluding foot; M76.892 Other specified enthesopathies of left lower limb, excluding foot; M51.37 Other intervertebral disc degeneration, lumbosacral region
CPT/HCPCS: 72050; 72110; 72170

== ENCOUNTER → 2021-08-05 | Outpatient (CLI) | payer OTHER ==
[~2021-08-05] MED LIST: CASIRIVIMAB/IMDEVIMAB (EUA) 1,200 MG in SODIUM CHLORIDE 0.9% 100 ML IVPB ONE; SODIUM CHLORIDE 0.9% 50 ML IVPB ONE; SODIUM CHLORIDE 0.9% 500 ML 500 ML in EMPTY BAG 1 BAG IV PRN
[2021-08-05 13:45] VITALS: RESP 16; TEMP 98.2
[2021-08-05 15:13] VITALS: BP 117/70; PULSE 74
== END ==
LOC: PROCWHC3 13:17
PROVIDERS: ATTEND Family Medicine
DX: U07.1 COVID-19 (principal); E66.9 Obesity, unspecified; E11.9 Type 2 diabetes mellitus without complications; I10 Essential (primary) hypertension; Z68.41 Body mass index [BMI] 40.0-44.9, adult; Z88.2 Allergy status to sulfonamides; Z88.8 Allergy status to other drugs, medicaments and biological substances; F17.200 Nicotine dependence, unspecified, uncomplicated
CPT/HCPCS: 96360; Q0243; M0243; 96361

== ENCOUNTER 2022-03-05 15:47 | Emergency (ER) | payer OTHER ==
[2022-03-05 15:55] VITALS: TEMP 98.3
[2022-03-05] MEDS ORDERED: SODIUM CHLORIDE 0.9% 1,000 ML IV ONE (18:31)
--- NOTE | 2022-03-05 18:39 | ED ---
Skin/Abscess/FB HPI - General Chief complaint: Skin/Abscess/Foreign Body Stated complaint: L leg sore Time Seen by Provider: 03/05/22 18:19 Source: patient, RN notes reviewed Mode of arrival: ambulatory Limitations: no limitations - History of Present Illness Initial comments: This is a pleasant 46-year-old male presents to emergency department complaining of pain and redness to the back of his left calf. Patient states he was previously admitted for cellulitis in December and ended up having sepsis related to cellulitis in the same leg. Patient states he started getting redness in this area. He denies any other complaints at this time although he states that yesterday he felt like he had mild nausea. He denies any chest pain or short ness of breath. No skin rashes or lesions. No immobilization. No history of blood clots. There is no foot involvement. Erythema mainly in the calf area. No history of MRSA. No headache, no fever or chills, no changes in vision or hearing, no sore throat or difficulty with speech, no neck pain, no chest pain or shortness of breath, no abdominal pain, no vomiting, no changes in urination or bowel movements, no numbness or tingling, no skin rashes or lesions. - Related Data Home Medications Medication Instructions Recorded Confirmed Benazepril [Lotensin] 10 mg PO DAILY 08/08/17 12/10/21 Albuterol Inhaler [Ventolin Hfa 2 puff INHALATION RT-QID PRN 07/29/20 12/10/21 Inhaler] Atorvastatin [Lipitor] 80 mg PO DAILY 11/28/20 12/10/21 Hydrochlorothiazide 6.25 tab PO DAILY 08/05/21 12/10/21 [hydroCHLOROthiazide] Dulaglutide [Trulicity] 0.75 mg SQ FR 12/10/21 12/10/21 Fluorometholone 0.1% Ophth Madelin 1 drop BOTH EYES DIRECTED 12/10/21 12/10/21 [Fml] Metoprolol Succinate [Toprol XL] 75 mg PO BID 12/10/21 12/10/21 Previous Rx's Medication Instructions Recorded Cephalexin [Keflex] 500 mg PO QID #60 cap 12/14/21 Cephalexin [Keflex] 500 mg PO Q6HR #40 cap 03/05/22 Allergies Allergy/AdvReac Type Severity Reaction Status Date / Time furosemide [From Lasix] Allergy Rash/Hives Verified 12/10/21 23:44 Sulfa (Sulfonamide Allergy Rash/Hives Verified 12/10/21 23:44 Antibiotics) torsemide Allergy Rash/Hives Verified 12/10/21 23:44 Review of Systems ROS Statement: Those systems with pertinent positive or pertinent negative responses have been documented in the HPI. ROS Other: All systems not noted in ROS Statement are negative. Past Medical History Past Medical History: Diabetes Mellitus, Hypertension, Sleep Apnea/CPAP/BIPAP, Thyroid Disorder Additional Past Medical History / Comment(s): pulmonary hypertension, new diagnosis of diabetes 2020, thyroid nodules 2020 History of Any Multi-Drug Resistant Organisms: None Reported Past Surgical History: No Surgical Hx Reported Past Anesthesia/Blood Transfusion Reactions: No Reported Reaction Past Psychological History: No Psychological Hx Reported Smoking Status: Former smoker Past Alcohol Use History: None Reported Past Drug Use History: None Reported - Past Family History Father History Unknown: Yes General Exam Limitations: no limitations General appearance: alert, in no apparent distress Head exam: Present: atraumatic, normocephalic, normal inspection Eye exam: Present: normal appearance, PERRL, EOMI. Absent: scleral icterus, conjunctival injection, periorbital swelling ENT exam: Present: normal exam, mucous membranes moist Neck exam: Present: normal inspection. Absent: tenderness, meningismus, lymphadenopathy Respiratory exam: Present: normal lung sounds bilaterally. Absent: respiratory distress, wheezes, rales, rhonchi, stridor Cardiovascular Exam: Present: regular rate, normal rhythm, normal heart sounds. Absent: systolic murmur, diastolic murmur, rubs, gallop, clicks GI/Abdominal exam: Present: soft, normal bowel sounds. Absent: distended, tenderness, guarding, rebound, rigid Extremities exam: Present: full ROM, tenderness (Patient has mild tenderness to the left calf area. Homans sign is equivocal. There is no significant edema.), normal capillary refill. Absent: normal inspection (Mild erythema noted. No significant calor. Pedal pulses are intact. No foot involvement. Erythema is localized and does not progress past the mid calf.), pedal edema, joint swelling, calf tenderness Back exam: Present: normal inspection Neurological exam: Present: alert, oriented X3, CN II-XII intact Psychiatric exam: Present: normal affect, normal mood Skin exam: Present: warm, dry, intact, normal color, erythema (Erythema posterior left lower leg as above.). Absent: rash, cyanosis, diaphoretic, urticaria, vesicles, petechiae, pallor, mottled, abrasion Course Vital Signs 03/05/22 03/05/22 15:53 19:16 Temperature 98.3 F Pulse Rate 95 92 Respiratory 18 Rate Blood Pressure 162/102 120/80 O2 Sat by Pulse 98 97 Oximetry Medical Decision Making - Medical Decision Making Patient presents to symptomology consistent with mild cellulitis of the left lower leg. Appears to have some chronic skin changes consistent with mild venous stasis. We'll order IV antibiotics. Patient looks well otherwise. Does not appear to be systemically ill. Plan for discharge. Patient was reevaluated prior to discharge, vital signs stable, afebrile. Patient's diagnostic workup is essentially negative. Patient clinically has mild cellulitis. We'll treat with cephalexin 4 times daily. Patient was told to return to the ER for any signs or symptoms worsen. Told to return immediately if any other problems arise. All questions answered. Treatment plan discussed. Patient in agreement Every effort has been made to ensure accuracy of this dictation. However, due to the limitations of electronic medical records and dictation devices, errors in charting still occur. Treatment plan discussed, all questions answered. Supervising physician is Dr. Armando - Lab Data Result diagrams: 03/05/22 18:27 03/05/22 18:27 Lab Results 03/05/22 03/05/22 03/05/22 Range/Units 18:27 18:27 18:27 WBC 9.4 (3.8-10.6) k/uL RBC 5.10 (4.30-5.90) m/uL Hgb 15.0 (13.0-17.5) gm/dL Hct 46.4 (39.0-53.0) % MCV 91.1 (80.0-100.0) fL MCH 29.5 (25.0-35.0) pg MCHC 32.4 (31.0-37.0) g/dL RDW 13.2 (11.5-15.5) % Plt Count 209 (150-450) k/uL MPV 8.0 Neutrophils % 62 % Lymphocytes % 20 % Monocytes % 9 % Eosinophils % 5 % Basophils % 2 % Neutrophils # 5.9 (1.3-7.7) k/uL Lymphocytes # 1.9 (1.0-4.8) k/uL Monocytes # 0.8 (0-1.0) k/uL Eosinophils # 0.4 (0-0.7) k/uL Basophils # 0.1 (0-0.2) k/uL Sodium 140 (137-145) mmol/L Potassium 4.1 (3.5-5.1) mmol/L Chloride 103 (98-107) mmol/L Carbon Dioxide 27 (22-30) mmol/L Anion Gap 10 mmol/L BUN 17 (9-20) mg/dL Creatinine 0.78 (0.66-1.25) mg/dL Est GFR (CKD-EPI)AfAm >90 (>60 ml/min/1.73 sqM) Est GFR (CKD-EPI)NonAf >90 (>60 ml/min/1.73 sqM) Glucose 110 H (74-99) mg/dL Plasma Lactic Acid Nuno 1.1 (0.7-2.0) mmol/L Calcium 9.5 (8.4-10.2) mg/dL Total Bilirubin 0.6 (0.2-1.3) mg/dL AST 34 (17-59) U/L ALT 33 (4-49) U/L Alkaline Phosphatase 105 (38-126) U/L Total Protein 8.1 (6.3-8.2) g/dL Albumin 4.8 (3.5-5.0) g/dL Disposition Clinical Impression: Cellulitis of left lower extremity without foot Disposition: HOME SELF-CARE Condition: Good Instructions (If sedation given, give patient instructions): Cellulitis (ED) Additional Instructions: Take antibiotics as directed. Elevate your leg as much as possible. Make a follow-up appointment with your regular physician, call 8 AM tomorrow to schedule the appointment. Follow-up with your regular physician as directed. Return to the ER immediately if any symptoms worsen, new symptoms arise, or any other problems develop. Prescriptions: Cephalexin [Keflex] 500 mg PO Q6HR #40 cap Is patient prescribed a controlled substance at d/c from ED?: No Referrals: Gavin Muñoz MD [Primary Care Provider] - 1-2 days Time of Disposition: 20:49
[2022-03-05 19:02] LABS: Basophils # (A) 0.1 k/uL (0-0.2); Basophils % (A) 2 %; Eosinophils # (A) 0.4 k/uL (0-0.7); Eosinophils % (A) 5 %; HCT 46.4 % (39.0-53.0); Lymphocytes # (A) 1.9 k/uL (1.0-4.8); Lymphocytes % (A) 20 %; MCH 29.5 pg (25.0-35.0); MCHC 32.4 g/dL (31.0-37.0); MCV 91.1 fL (80.0-100.0); Monocytes # (A) 0.8 k/uL (0-1.0); Monocytes % (A) 9 %; Neutrophils # (A) 5.9 k/uL (1.3-7.7); Neutrophils % (A) 62 %; Platelet Count 209 k/uL (150-450); RDW 13.2 % (11.5-15.5); WBC 9.4 k/uL (3.8-10.6)
[2022-03-05 19:14] LABS: ALT 33 U/L (4-49); AST 34 U/L (17-59); African American GFR (CKD) >90 (>60 ml/min/1.73 sqM); Albumin 4.8 g/dL (3.5-5.0); Alkaline Phosphatase 105 U/L (38-126); Anion Gap 10 mmol/L; Blood Urea Nitrogen 17 mg/dL (9-20); Calcium 9.5 mg/dL (8.4-10.2); Carbon Dioxide 27 mmol/L (22-30); Chloride 103 mmol/L (98-107); Glucose 110 mg/dL (74-99); Non-African American GFR(CKD) >90 (>60 ml/min/1.73 sqM); Potassium 4.1 mmol/L (3.5-5.1); Sodium 140 mmol/L (137-145); Total Bilirubin 0.6 mg/dL (0.2-1.3); Total Protein 8.1 g/dL (6.3-8.2)
--- NOTE | 2022-03-05 20:34 | US ---
EXAMINATION TYPE: US venous doppler duplex LE LT DATE OF EXAM: 03/05/2022 7:28 PM COMPARISON: [facility] 12/11/21 CLINICAL HISTORY: Left calf pain. Left calf tenderness; patient states he thinks it is cellulitis SIDE PERFORMED: Left TECHNIQUE: The lower extremity deep venous system is examined utilizing real time linear array sonog elisabeth with graded compression, doppler sonography and color-flow sonography. VESSELS IMAGED: Common Femoral Vein Deep Femoral Vein Greater Saphenous Vein * Femoral Vein Popliteal Vein Small Saphenous Vein * Proximal Calf Veins (* superficial vessels) PTV Peroneals v Morphologic normal left groin lymph nodes Left Leg: Negative for DVT Grayscale, color doppler, spectral doppler imaging performed of the deep veins of the lower extremiti es. There is normal flow, compressibility, vascular waveforms. IMPRESSION: No evidence of DVT in the left thoracotomy.
[2022-03-05] MEDS ORDERED: CEPHALEXIN 500MG STARTER PACK 4 CAP BTL PO STA (20:47)
[2022-03-05 21:08] VITALS: BP 142/92; PULSE 76; RESP 16
== END 2022-03-05 21:08 | disposition home or self-care (01) ==
LOC: EC 15:47
DX: L03.116 Cellulitis of left lower limb (principal); E11.9 Type 2 diabetes mellitus without complications; I10 Essential (primary) hypertension; Z87.891 Personal history of nicotine dependence; Z88.2 Allergy status to sulfonamides; Z79.899 Other long term (current) drug therapy
CPT/HCPCS: 36415; 80053; 83605; 85025; 87040; 93971; 99284; 96365; J0690

== ENCOUNTER → 2022-03-23 | Outpatient (CLI) | payer OTHER ==
--- NOTE | 2022-03-23 19:47 | US ---
EXAMINATION TYPE: US thyroid st tissue head/neck DATE OF EXAM: 03/23/2022 COMPARISON: NONE CLINICAL HISTORY: E04.2 Nontoxic multinodular goiter. Hx of thyroid nodules GLAND SIZE: Right Lobe: 5.4 x 2.4 x 2.0 cm Overall Parenchyma: heterogenous Left Lobe: 5.4 x 3.6 x 2.5 cm Overall Parenchyma: heterogeneous Isthmus Thickness: 0.9 cm NODULES RIGHT: # of nodules measured on right: 3 1. 1.1 X 1.2 x 0.9 cm, lower mid, solid or almost completely solid, hypoechoic nodule, which is wid er than tall, with smooth margins, without echogenic foci. Prior size: N/A 2. 0.5 X 0.4 x 0.3 cm, mid mid, solid or almost completely solid, hypoechoic nodule, which is wider than tall, with smooth margins, without echogenic foci. Prior size: N/A 3. 0.5 X 0.5 x 0.3 cm, upper mid, solid or almost completely solid, hypoechoic nodule, which is wid er than tall, with smooth margins, without echogenic foci. Prior size: N/A LEFT: # of nodules measured on left: 1 1. 1.4 X 1.8 x 1.0 cm, lower mid, solid or almost completely solid, hypoechoic nodule, which is wid er than tall, with smooth margins, without echogenic foci. TR 4 Prior size: N/A ISTHMUS: # of nodules measured in the isthmus: 0 Bilateral neck scanned, no evidence of lymphadenopathy. IMPRESSION: 1. Moderately suspicious nodule left lobe thyroid. Fine-needle aspiration recommended. 2017 ACR TI-RADS LEVEL: TR-RADS 4 - Moderately Suspicious: Follow if > 1 cm, FNA if > 1.5 cm *Highest TI-RADS level nodule reported
== END | disposition home or self-care (01) ==
LOC: RADUSWWP 14:39
PROVIDERS: ATTEND Internal Medicine Endocrinology, Diabetes & Metabolism
DX: E04.2 Nontoxic multinodular goiter (principal)
CPT/HCPCS: 76536

== ENCOUNTER → 2022-06-22 | Outpatient (CLI) | payer OTHER | END | disposition home or self-care (01) | LOC: LABWHC1 11:43 | PROVIDERS: ATTEND Psychiatry & Neurology Neurology | DX: M62.82 Rhabdomyolysis (principal) | CPT/HCPCS: 36415; 82550 ==

== ENCOUNTER 2022-07-22 06:35 | Observation (INO) | payer OTHER ==
--- NOTE | 2022-07-22 06:48 | ED ---
Arrhythmia/Palpitations HPI - General Chief Complaint: Arrhythmia/Palpitations Stated Complaint: Racing/Fluttering Heart, HBP Time Seen by Provider: 07/22/22 06:40 Source: patient, RN notes reviewed Mode of arrival: wheelchair Limitations: no limitations - History of Present Illness Initial Comments: This is a 47-year-old male presents emergency Department chief complaint of palpitations. Patient states it woke him up around 30 minutes ago and he states that he felt short of breath. He states he feels like his heart is racing he states he took his at home blood pressure cuff in which the blood pressure was elevated. Patient has seen cardiology at [facility] a few times in which they told him he had some ventricular tachycardia nonsustained episodes with a Holter monitor. Patient has no history of atrial fibrillation no prior cardiac stents. Patient does admit that he has a benign thyroid disease but is well maintained has medications. Denies any nausea vomiting no diaphoretic episodes. - Related Data Home Medications Medication Instructions Recorded Confirmed Benazepril [Lotensin] 10 mg PO DAILY 08/08/17 12/10/21 Albuterol Inhaler [Ventolin Hfa 2 puff INHALATION RT-QID PRN 07/29/20 12/10/21 Inhaler] Atorvastatin [Lipitor] 80 mg PO DAILY 11/28/20 12/10/21 hydroCHLOROthiazide 6.25 tab PO DAILY 08/05/21 12/10/21 Dulaglutide [Trulicity] 0.75 mg SQ FR 12/10/21 12/10/21 Fluorometholone 0.1% Ophth Madelin 1 drop BOTH EYES DIRECTED 12/10/21 12/10/21 [Fml] Metoprolol Succinate [Toprol XL] 75 mg PO BID 12/10/21 12/10/21 Previous Rx's Medication Instructions Recorded Cephalexin [Keflex] 500 mg PO QID #60 cap 12/14/21 Cephalexin [Keflex] 500 mg PO Q6HR #40 cap 03/05/22 Allergies Allergy/AdvReac Type Severity Reaction Status Date / Time furosemide [From Lasix] Allergy Rash/Hives Verified 07/22/22 06:39 Sulfa (Sulfonamide Allergy Rash/Hives Verified 07/22/22 06:39 Antibiotics) torsemide Allergy Rash/Hives Verified 07/22/22 06:39 Review of Systems ROS Statement: Those systems with pertinent positive or pertinent negative responses have been documented in the HPI. ROS Other: All systems not noted in ROS Statement are negative. Past Medical History Past Medical History: Diabetes Mellitus, Hypertension, Sleep Apnea/CPAP/BIPAP, Thyroid Disorder Additional Past Medical History / Comment(s): pulmonary hypertension, new diagnosis of diabetes 2020, thyroid nodules 2020 History of Any Multi-Drug Resistant Organisms: None Reported Past Surgical History: No Surgical Hx Reported Past Anesthesia/Blood Transfusion Reactions: No Reported Reaction Past Psychological History: No Psychological Hx Reported Smoking Status: Former smoker Past Alcohol Use History: None Reported Past Drug Use History: None Reported - Past Family History Father History Unknown: Yes General Exam Limitations: no limitations General appearance: alert, in no apparent distress Head exam: Present: atraumatic, normocephalic, normal inspection Eye exam: Present: normal appearance, PERRL, EOMI. Absent: scleral icterus, conjunctival injection, periorbital swelling ENT exam: Present: normal exam, normal oropharynx, mucous membranes moist Neck exam: Present: normal inspection, full ROM. Absent: tenderness, meningismus, lymphadenopathy Respiratory exam: Present: normal lung sounds bilaterally. Absent: respiratory distress, wheezes, rales, rhonchi, stridor Cardiovascular Exam: Present: tachycardia, irregular rhythm, normal heart sounds. Absent: regular rate, normal rhythm, systolic murmur, diastolic murmur, rubs, gallop, clicks Course Vital Signs 07/22/22 07/22/22 07/22/22 06:38 07:28 08:25 Temperature 98 F Pulse Rate 67 137 H 141 H Respiratory 18 12 13 Rate Blood Pressure 153/88 107/80 103/76 O2 Sat by Pulse 96 96 96 Oximetry Medical Decision Making - Medical Decision Making 47-year-old male presented for palpitations. Patient found to be in A. fib with RVR this is new onset A. fib patient was started on Cardizem including a bolus, confusion patient was also started on heparin low-dose intensity. Patient will be admitted to Dr. Toni Lopez did consult cardiology for further treatment and management. - Lab Data Result diagrams: 07/22/22 07:23 07/22/22 07:23 Lab Results 07/22/22 07/22/22 07/22/22 Range/Units 07:23 07:23 07:23 WBC 6.7 (3.8-10.6) k/uL RBC 5.31 (4.30-5.90) m/uL Hgb 15.9 (13.0-17.5) gm/dL Hct 47.3 (39.0-53.0) % MCV 89.1 (80.0-100.0) fL MCH 30.0 (25.0-35.0) pg MCHC 33.7 (31.0-37.0) g/dL RDW 13.8 (11.5-15.5) % Plt Count 181 (150-450) k/uL MPV 8.5 Neutrophils % 62 % Lymphocytes % 16 % Monocytes % 11 % Eosinophils % 6 % Basophils % 1 % Neutrophils # 4.1 (1.3-7.7) k/uL Lymphocytes # 1.1 (1.0-4.8) k/uL Monocytes # 0.8 (0-1.0) k/uL Eosinophils # 0.4 (0-0.7) k/uL Basophils # 0.1 (0-0.2) k/uL PT 9.9 (9.0-12.0) sec INR 0.9 (<1.2) APTT 26.1 (22.0-30.0) sec Sodium 140 (137-145) mmol/L Potassium 4.2 (3.5-5.1) mmol/L Chloride 104 (98-107) mmol/L Carbon Dioxide 23 (22-30) mmol/L Anion Gap 13 mmol/L BUN 19 (9-20) mg/dL Creatinine 0.65 L (0.66-1.25) mg/dL Est GFR (CKD-EPI)AfAm >90 (>60 ml/min/1.73 sqM) Est GFR (CKD-EPI)NonAf >90 (>60 ml/min/1.73 sqM) Glucose 109 H (74-99) mg/dL Calcium 8.9 (8.4-10.2) mg/dL Magnesium 2.0 (1.6-2.3) mg/dL Total Bilirubin 0.9 (0.2-1.3) mg/dL AST 41 (17-59) U/L ALT 39 (4-49) U/L Alkaline Phosphatase 96 (38-126) U/L Troponin I (0.000-0.034) ng/mL Total Protein 7.2 (6.3-8.2) g/dL Albumin 4.5 (3.5-5.0) g/dL TSH 1.250 (0.465-4.680) mIU/L 07/22/22 Range/Units 07:23 WBC (3.8-10.6) k/uL RBC (4.30-5.90) m/uL Hgb (13.0-17.5) gm/dL Hct (39.0-53.0) % MCV (80.0-100.0) fL MCH (25.0-35.0) pg MCHC (31.0-37.0) g/dL RDW (11.5-15.5) % Plt Count (150-450) k/uL MPV Neutrophils % % Lymphocytes % % Monocytes % % Eosinophils % % Basophils % % Neutrophils # (1.3-7.7) k/uL Lymphocytes # (1.0-4.8) k/uL Monocytes # (0-1.0) k/uL Eosinophils # (0-0.7) k/uL Basophils # (0-0.2) k/uL PT (9.0-12.0) sec INR (<1.2) APTT (22.0-30.0) sec Sodium (137-145) mmol/L Potassium (3.5-5.1) mmol/L Chloride (98-107) mmol/L Carbon Dioxide (22-30) mmol/L Anion Gap mmol/L BUN (9-20) mg/dL Creatinine (0.66-1.25) mg/dL Est GFR (CKD-EPI)AfAm (>60 ml/min/1.73 sqM) Est GFR (CKD-EPI)NonAf (>60 ml/min/1.73 sqM) Glucose (74-99) mg/dL Calcium (8.4-10.2) mg/dL Magnesium (1.6-2.3) mg/dL Total Bilirubin (0.2-1.3) mg/dL AST (17-59) U/L ALT (4-49) U/L Alkaline Phosphatase (38-126) U/L Troponin I <0.012 (0.000-0.034) ng/mL Total Protein (6.3-8.2) g/dL Albumin (3.5-5.0) g/dL TSH (0.465-4.680) mIU/L Critical Care Time Critical Care Time: Yes Total Critical Care Time: 35 Disposition Clinical Impression: New onset atrial fibrillation, Atrial fibrillation with RVR Disposition: ADMITTED IP TO THIS HOSP Condition: Fair Referrals: Gavin Muñoz MD [Primary Care Provider] - 1-2 days Time of Disposition: 08:20
[2022-07-22] MEDS ORDERED: DILTIAZEM DRIP BOLUS FROM BAG 1 MG SOLN IV ONE (06:51)
[2022-07-22] MEDS ORDERED: HEPARIN SODIUM 1,000 UN/ML (10ML VL) IV PRN (06:52)
[2022-07-22] MEDS ORDERED: HEPARIN SODIUM 1,000 UN/ML (10ML VL) IV ONE (06:52)
[2022-07-22] MEDS ORDERED: HEPARIN SOD,PORK IN 0.45% NACL 25,000 UNIT in 0.45% NACL 1 250ML.BAG IV SCH (07:00)
[2022-07-22] MEDS: DILTIAZEM 125 MG in SODIUM CHLORIDE 0.9% 100 ML IV SCH (07:23)
[2022-07-22 07:53] LABS: Basophils # (A) 0.1 k/uL (0-0.2); Basophils % (A) 1 %; Eosinophils # (A) 0.4 k/uL (0-0.7); Eosinophils % (A) 6 %; HCT 47.3 % (39.0-53.0); HGB 15.9 gm/dL (13.0-17.5); Lymphocytes # (A) 1.1 k/uL (1.0-4.8); Lymphocytes % (A) 16 %; MCHC 33.7 g/dL (31.0-37.0); MCV 89.1 fL (80.0-100.0); Mean Platelet Volume 8.5; Monocytes # (A) 0.8 k/uL (0-1.0); Monocytes % (A) 11 %; Neutrophils # (A) 4.1 k/uL (1.3-7.7); Neutrophils % (A) 62 %; Platelet Count 181 k/uL (150-450); RBC 5.31 m/uL (4.30-5.90); RDW 13.8 % (11.5-15.5); WBC 6.7 k/uL (3.8-10.6)
[2022-07-22 08:03] LABS: INR 0.9 (<1.2); Partial Thromboplastin Time 26.1 sec (22.0-30.0); Prothrombin Time 9.9 sec (9.0-12.0)
[2022-07-22 08:08] LABS: ALT 39 U/L (4-49); AST 41 U/L (17-59); African American GFR (CKD) >90 (>60 ml/min/1.73 sqM); Albumin 4.5 g/dL (3.5-5.0); Alkaline Phosphatase 96 U/L (38-126); Anion Gap 13 mmol/L; Blood Urea Nitrogen 19 mg/dL (9-20); Calcium 8.9 mg/dL (8.4-10.2); Carbon Dioxide 23 mmol/L (22-30); Chloride 104 mmol/L (98-107); Glucose 109 mg/dL (74-99); Non-African American GFR(CKD) >90 (>60 ml/min/1.73 sqM); Potassium 4.2 mmol/L (3.5-5.1); Sodium 140 mmol/L (137-145); Total Bilirubin 0.9 mg/dL (0.2-1.3); Total Protein 7.2 g/dL (6.3-8.2)
[2022-07-22] MEDS ORDERED: NITROGLYCERIN SL TABS 0.4 MG TAB SUBLINGUAL PRN (08:55)
--- NOTE | 2022-07-22 08:58 | XR ---
EXAMINATION TYPE: XR chest 2V DATE OF EXAM: 07/22/2022 COMPARISON: 07/30/2020 TECHNIQUE: PA and lateral views submitted. HISTORY: Dysrhythmia and chest pain FINDINGS: The lungs are clear and there is no pneumothorax, pleural effusion, or focal pneumonia. Heart size stable. There is mild prominence of interstitial noninvasive chronic interstitial lung disease. No pl eural effusion or pneumothorax hypertrophic degenerative changes spine. Mild correlate for COPD. IMPRESSION: 1. Coarsened interstitium associated with chronic interstitial lung disease correlate clinically..
[2022-07-22] MEDS ORDERED: METOPROLOL SUCCINATE (ER) 25 MG TAB.ER.24H PO SCH (11:00)
[2022-07-22 11:23] LABS: Partial Thromboplastin Time 30.5 sec (22.0-30.0)
--- NOTE | 2022-07-22 11:25 | P.CRDCN ---
History of Present Illness History of present illness: HISTORY OF PRESENT ILLNESS: This is a 47-year-old male with a past medical history significant for hypertension and "thyroid swelling" (sees a doctor at [facility] for thyroid issues). Patient does not follow with a director of search engine marketing. We have been asked to see the patient in consultation for atrial fibrillation. Patient examined at the bedside. Patient states he woke up this morning and did not feel well. He reports feeling "stuffy". He reports shortness of breath and palpitations. Patient presented to the emergency room for further evaluation. He was found to be in atrial for relation with RVR. The patient denies a history of atrial fibrillation. The patient does report seeing Dr. Orozco at [facility] in the past for tachycardia. However he states he has never been diagnosed with atrial fibrillation. He remains in afib with rvr around 140. He is on a Cardizem drip at 10mg/hr. Blood pressure 103/76. He denies alcohol use, smoking, or drug use. * EKG reveals atrial fibrillation with RVR * Chest xray coarsened interstitium associated with chronic interstitial lung disease * Laboratory data: WBC 6.7. Hemoglobin 15.9. Platelet count 181. Sodium 140. Potassium 4.2. BUN 19. Creatinine 0.65. Troponin negative 1. TSH 1.250 * Current home cardiac medications include metoprolol succinate 75 mg twice a day, hydrochlorothiazide 6.25mg daily, and Benzapril 10mg daily REVIEW OF SYSTEMS: At the time of my exam: CONSTITUTIONAL: Denies fever or chills. HEENT: Denies blurred vision, vision changes, or eye pain. Denies hemoptysis CARDIOVASCULAR: Denies chest pain. Denies orthopnea. Denies PND. Denies palpitations RESPIRATORY: Denies shortness of breath. GASTROINTESTINAL: Denies abdominal pain. Denies nausea or vomiting. HEMATOLOGIC: Denies bleeding disorders. GENITOURINARY: Denies any blood in urine. SKIN: Denies pruitis. Denies rash. PHYSICAL EXAM: VITAL SIGNS: Reviewed. GENERAL: Well-developed in no acute distress. HEENT: Head is normocephalic. Pupils are equal, round. Sclerae anicteric. Mucous membranes of the mouth are moist. Neck supple. No JVD or thyromegaly LUNGS: Respirations even and unlabored. Lungs essentially clear to auscultation bilaterally. HEART: Tachycardic. Irregular rate and rhythm. S1 and S2 heard. ABDOMEN: Soft. Nondistended. Nontender. EXTREMITIES: Normal range of motion. No clubbing or cyanosis. Peripheral pulses intact. No lower extremity edema NEUROLOGIC: Awake and alert. Oriented x 3. ASSESSMENT: New onset atrial fibrillation with RVR Hypertension History of thyroid nodules, followed at [facility] Diabetes PLAN: Obtain 2D echo to assess cardiac structure and function Resume metoprolol. Increase dose to 100mg BID Continue IV Cardizem Hold additional cardiac medications due to soft blood pressure Continue IV heparin. Case management consulted for Eliquis copay. If covered, will change to Eliquis and DC Heparin Check D-Dimer Check Covid NPO at midnight. Possible FAMILIA/CV tomorrow if patient remains in afib with RVR Further recommendations pending patient course Nurse practitioner note has been reviewed by physician. Signing provider agrees with the documented findings, assessment, and plan of care. Past Medical History Past Medical History: Diabetes Mellitus, Hypertension, Sleep Apnea/CPAP/BIPAP, Thyroid Disorder Additional Past Medical History / Comment(s): pulmonary hypertension, new tamar gnosis of diabetes 2020, thyroid nodules 2020 History of Any Multi-Drug Resistant Organisms: None Reported Past Surgical History: No Surgical Hx Reported Past Anesthesia/Blood Transfusion Reactions: No Reported Reaction Past Psychological History: No Psychological Hx Reported Smoking Status: Former smoker Past Alcohol Use History: None Reported Past Drug Use History: None Reported - Past Family History Father History Unknown: Yes Medications and Allergies Home Medications Medication Instructions Recorded Confirmed Type Benazepril [Lotensin] 10 mg PO DAILY 08/08/17 07/22/22 History Dulaglutide [Trulicity] 0.75 mg SQ TH 12/10/21 07/22/22 History Metoprolol Succinate [Toprol XL] 75 mg PO BID 12/10/21 07/22/22 History Apixaban [Eliquis] 5 mg PO BID #60 tab 07/22/22 Rx Ergocalciferol [Vitamin D2 (1250 1,250 mcg PO Q30D 07/22/22 07/22/22 History Mcg = 10399 Iu)] Hydrochlorothiazide 12.5mg Tab 6.25 mg PO DAILY 07/22/22 07/22/22 History cycloSPORINE 0.05% OPHTH SOLN 1 drop BOTH EYES BID 07/22/22 07/22/22 History [Restasis] Allergies Allergy/AdvReac Type Severity Reaction Status Date / Time furosemide [From Lasix] Allergy Rash/Hives Verified 07/22/22 09:04 Sulfa (Sulfonamide Allergy Rash/Hives Verified 07/22/22 09:04 Antibiotics) torsemide Allergy Rash/Hives Verified 07/22/22 09:04 Physical Exam Vitals: Vital Signs Temp Pulse Resp BP Pulse Ox 07/22/22 08:25 141 H 13 103/76 96 07/22/22 07:28 137 H 12 107/80 96 07/22/22 06:38 98 F 67 18 153/88 96 Intake and Output 07/21/22 07/22/22 07/22/22 22:59 06:59 14:59 Intake Total 5.25 Balance 5.25 Intake: Intake, IV Titration 5.25 Amount Diltiazem 125 mg In 5.25 Sodium Chloride 0.9% 100 ml @ 5 MG/HR 5 mls/hr IV .Q24H [facility] Rx#:[id number] Other: Weight 135.171 kg Results 07/22/22 07:23 07/22/22 07:23 Cardiac Enzymes 07/22/22 07/22/22 Range/Units 07:23 07:23 AST 41 (17-59) U/L Troponin I <0.012 (0.000-0.034) ng/mL Coagulation 07/22/22 Range/Units 07:23 PT 9.9 (9.0-12.0) sec APTT 26.1 (22.0-30.0) sec CBC 07/22/22 Range/Units 07:23 WBC 6.7 (3.8-10.6) k/uL RBC 5.31 (4.30-5.90) m/uL Hgb 15.9 (13.0-17.5) gm/dL Hct 47.3 (39.0-53.0) % Plt Count 181 (150-450) k/uL Comprehensive Metabolic Panel 07/22/22 Range/Units 07:23 Sodium 140 (137-145) mmol/L Potassium 4.2 (3.5-5.1) mmol/L Chloride 104 (98-107) mmol/L Carbon Dioxide 23 (22-30) mmol/L BUN 19 (9-20) mg/dL Creatinine 0.65 L (0.66-1.25) mg/dL Glucose 109 H (74-99) mg/dL Calcium 8.9 (8.4-10.2) mg/dL AST 41 (17-59) U/L ALT 39 (4-49) U/L Alkaline Phosphatase 96 (38-126) U/L Total Protein 7.2 (6.3-8.2) g/dL Albumin 4.5 (3.5-5.0) g/dL Current Medications Generic Name Dose Route Start Last Admin Trade Name Freq PRN Reason Stop Dose Admin Heparin Sodium (Porcine) 0 unit 07/22/22 06:52 Heparin Sodium 1,000 Un/Ml (10ml Vl) IV PER PROTOCOL PRN Low PTT Protocol Diltiazem HCl 125 mg/ Sodium 125 mls @ 5 mls/hr 07/22/22 07:00 07/22/22 08:26 Chloride IV 10 mg/hr .Q24H RADHIKA 10 mls/hr Infusion 5 MG/HR Heparin Sodium/Sodium Chloride 250 mls @ 10 mls/hr 07/22/22 07:00 07/22/22 07:55 25,000 unit/ Sodium Chloride IV 7.398 units/kg/hr .Q24H RADHIKA 10 mls/hr Administration Protocol 7.398 UNITS/KG/HR Nitroglycerin 0.4 mg 07/22/22 08:55 Nitroglycerin Sl Tabs 0.4 Mg Tab SUBLINGUAL Q5M PRN Chest Pain Intake and Output 07/21/22 07/22/22 07/22/22 22:59 06:59 14:59 Intake Total 5.25 Balance 5.25 Intake: Intake, IV Titration 5.25 Amount Diltiazem 125 mg In 5.25 Sodium Chloride 0.9% 100 ml @ 5 MG/HR 5 mls/hr IV .Q24H [facility] Rx#:[id number] Other: Weight 135.171 kg 07/22/22 07:23 07/22/22 07:23
[2022-07-22] MEDS ORDERED: METOPROLOL SUCCINATE (ER) 100 MG TAB.ER.24H PO SCH (11:30)
[2022-07-22] MEDS ORDERED: METOPROLOL SUCCINATE (ER) 25 MG TAB.ER.24H PO ONE (11:44)
[2022-07-22] MEDS: APIXABAN 5 MG TAB PO SCH ×2 (12:15→20:11)
[2022-07-22] MEDS ORDERED: DEXTROSE 50% SYRINGE 50 ML IVP PRN ×2 (18:36)
[2022-07-22 19:39] LABS: Glucose,Whole Blood 114 mg/dL (70-110)
[2022-07-22] MEDS: INSULIN ASPART (NovoLOG) 100 UNIT/ML VIAL SQ SCH (20:04)
[2022-07-22] MEDS: METOPROLOL SUCCINATE (ER) 100 MG TAB.ER.24H PO SCH (20:11)
[2022-07-22] MEDS: cycloSPORINE 0.05% OPHTH 0.4 ML DROPERETTE BOTH EYES SCH (20:11)
[2022-07-23 05:53] LABS: Glucose,Whole Blood 90 mg/dL (70-110)
[2022-07-23] MEDS: INSULIN ASPART (NovoLOG) 100 UNIT/ML VIAL SQ SCH ×4 (05:54→19:54)
[2022-07-23] MEDS: DILTIAZEM 125 MG in SODIUM CHLORIDE 0.9% 100 ML IV SCH (05:54)
[2022-07-23] MEDS: METOPROLOL SUCCINATE (ER) 100 MG TAB.ER.24H PO SCH ×2 (07:57→19:53)
[2022-07-23] MEDS: cycloSPORINE 0.05% OPHTH 0.4 ML DROPERETTE BOTH EYES SCH ×2 (07:57→19:54)
[2022-07-23] MEDS: APIXABAN 5 MG TAB PO SCH ×2 (07:57→19:52)
[2022-07-23 08:33] LABS: Basophils % (A) 1 %; Eosinophils # (A) 0.1 k/uL (0-0.7); Eosinophils % (A) 3 %; HCT 42.4 % (39.0-53.0); Lymphocytes # (A) 0.6 k/uL (1.0-4.8); Lymphocytes % (A) 13 %; MCH 29.5 pg (25.0-35.0); MCV 89.2 fL (80.0-100.0); Mean Platelet Volume 8.6; Monocytes # (A) 0.6 k/uL (0-1.0); Monocytes % (A) 12 %; Neutrophils # (A) 3.2 k/uL (1.3-7.7); Neutrophils % (A) 67 %; Platelet Count 162 k/uL (150-450); RBC 4.75 m/uL (4.30-5.90); RDW 13.6 % (11.5-15.5); WBC 4.8 k/uL (3.8-10.6)
[2022-07-23] MEDS: ACETAMINOPHEN TAB 325 MG TAB PO PRN ×3 (09:29→23:57)
[2022-07-23 10:24] LABS: Chol/HDL Ratio 5.86 Ratio; LDL Cholesterol,Calculated 100.1 mg/dL (0.0-131.0)
--- NOTE | 2022-07-23 10:28 | P.PN ---
Subjective Progress Note Date: 07/23/22 patient converted back to sinus rhythm LV function appears normal he is to be discharged home and arrange follow-up at [facility]. He has already seen a access registrar. He developed fever and is overweight test had come back positive this discharge is going to be held HISTORY OF PRESENT ILLNESS: This is a 47-year-old male with a past medical history significant for hy pertension and "thyroid swelling" (sees a doctor at [facility] for thyroid issues). Patient does not follow with a access registrar. We have been asked to see the patient in consultation for atrial fibrillation. Patient examined at the bedside. Patient states he woke up this morning and did not feel well. He reports feeling "stuffy". He reports shortness of breath and palpitations. Patient presented to the emergency room for further evaluation. He was found to be in atrial for relation with RVR. The patient denies a history of atrial fibrillation. The patient does report seeing Dr. Orozco at [facility] in the past for tachycardia. However he states he has never been diagnosed with atrial fibrillation. He remains in afib with rvr around 140. He is on a Cardizem drip at 10mg/hr. Blood pressure 103/76. He denies alcohol use, smoking, or drug use. * EKG reveals atrial fibrillation with RVR * Chest xray coarsened interstitium associated with chronic interstitial lung disease * Laboratory data: WBC 6.7. Hemoglobin 15.9. Platelet count 181. Sodium 140. Potassium 4.2. BUN 19. Creatinine 0.65. Troponin negative 1. TSH 1.250 * Current home cardiac medications include metoprolol succinate 75 mg twice a day, hydrochlorothiazide 6.25mg daily, and Benzapril 10mg daily 07/23/2022 Patient examined this morning at the bedside. Patient converted to sinus mechan ism last night. His Cardizem drip has been discontinued. He remains in sinus mechanism this morning. He denies chest pain or pressure. He denies shortness of breath. Vital signs are stable. PHYSICAL EXAM: VITAL SIGNS: Reviewed. GENERAL: Well-developed in no acute distress. HEENT: Head is normocephalic. Pupils are equal, round. Sclerae anicteric. Mucous membranes of the mouth are moist. Neck supple. No JVD or thyromegaly LUNGS: Respirations even and unlabored. Lungs essentially clear to auscultation bilaterally. HEART: Regular rate and rhythm. S1 and S2 heard. ABDOMEN: Soft. Nondistended. Nontender. EXTREMITIES: Normal range of motion. No clubbing or cyanosis. Peripheral pulses intact. No lower extremity edema NEUROLOGIC: Awake and alert. Oriented x 3. ASSESSMENT: New onset paroxysmal atrial fibrillation with RVR Hypertension History of thyroid nodules, followed at [facility] Diabetes PLAN: 2-D echo ordered. Await results. Continue current cardiac medications Resume additional home hypertensive medications Patient is stable for discharge home today pending echo results Patient requesting to follow-up with his access registrar at [facility] that he has seen in the past Nurse practitioner note has been reviewed by physician. Signing provider agrees with the documented findings, assessment, and plan of care. Objective - Vital Signs Vital signs: Vital Signs Temp 98.1 F 07/23/22 03:41 Pulse 93 07/23/22 07:56 Resp 18 07/23/22 07:56 BP 151/93 07/23/22 07:56 Pulse Ox 95 07/23/22 07:56 FiO2 Intake & Output 07/22/22 07/23/22 07/23/22 18:59 06:59 18:59 Intake Total 5.25 349.167 360 Balance 5.25 349.167 360 Weight 135.171 kg Intake: Intake, IV Titration 5.25 109.167 Amount Diltiazem 125 mg In 5.25 109.167 Sodium Chloride 0.9% 100 ml @ 5 MG/HR 5 mls/hr IV .Q24H [facility] Rx#:[id number] Oral 240 360 Other: Voiding Method Toilet # Voids 1 - Labs CBC & Chem 7: 07/23/22 18:30 07/22/22 07:23 Labs: Abnormal Lab Results - Last 24 Hours (Table) 07/22/22 07/22/22 07/23/22 Range/Units 10:37 19:37 07:07 Lymphocytes # 0.6 L (1.0-4.8) k/uL APTT 30.5 H (22.0-30.0) sec POC Glucose (mg/dL) 114 H (70-110) mg/dL
[2022-07-23] MEDS: hydroCHLOROthiazide 25 MG TAB PO SCH (10:51)
[2022-07-23] MEDS: lisinopriL 10 MG TAB PO SCH (10:51)
--- NOTE | 2022-07-23 11:09 | CA ---
Transthoracic Echo Report Name: Sarath Bob Age: 47 Gender: M : 1975 Exam Date: 07/22/2022 10:54 Exam Location: [facility] Ht (in): 68 Wt (lb): 298 Ordering Physician: Sarah Doyle Attending/Referring Phys: [id number], Vivek Demo Event Specialist Sindy Scott, RAZIA Procedure CPT: Indications: LV function Cardiac Hx: Technical Quality: Fair Contrast 1: Total Dose (mL): Contrast 2: Total Dose (mL): MEASUREMENTS (Male / Female) Normal Values 2D ECHO LV Diastolic Diameter PLAX 4.4 cm 4.2 - 5.9 / 3.9 - 5.3 cm LV Systolic Diameter PLAX 3.6 cm IVS Diastolic Thickness 1.8 cm 0.6 - 1.0 / 0.6 - 0.9 cm LVPW Diastolic Thickness 1.4 cm 0.6 - 1.0 / 0.6 - 0.9 cm LV Relative Wall Thickness 0.7 RV Internal Dim ED PLAX 3.0 cm LA Systolic Diameter LX 4.0 cm 3.0 - 4.0 / 2.7 - 3.8 cm LA Volume 64.7 cm??? 18 - 58 / 22 - 52 cm??? M-MODE Aortic Root Diameter MM 3.4 cm MV E Point Septal Separation 0.7 cm AV Cusp Separation MM 2.1 cm DOPPLER AV Peak Velocity 148.8 cm/s AV Peak Gradient 8.9 mmHg MV Area PHT 6.6 cm??? MV Deceleration Time 162.2 ms FINDINGS Left Ventricle Left ventricular ejection fraction is estimated at 45 %. Left ventricular cavity size normal. Severely increased septal wall thickness. Right Ventricle Normal right ventricular size and function. Unable to estimate the right ventricular systolic pressure. Right Atrium Normal right atrial size. Left Atrium Mildly increased left atrial volume. Mildly increased left atrial area. Mitral Valve Structurally normal mitral valve. No evidence for mitral valve prolapse. Mild mitral regurgitation. Aortic Valve Trileaflet aortic valve. No aortic valve stenosis or regurgitation. Tricuspid Valve Structurally normal tricuspid valve. Pulmonic Valve Structurally normal pulmonic valve. Pericardium Normal pericardium. No pericardial effusion. Aorta Normal size aortic root and proximal ascending aorta. CONCLUSIONS Left ventricular ejection fraction 45% Moderate to severely increased left ventricular wall thickness Mild increased left atrial size Mild mitral regurgitation No pericardial effusion Previewed by: Dr. Tony David DO (Electronically Signed) Final Date: 23 July 2022 11:09
[2022-07-23 12:02] LABS: Glucose,Whole Blood 116 mg/dL (70-110)
[2022-07-23 16:56] LABS: Glucose,Whole Blood 109 mg/dL (70-110)
--- NOTE | 2022-07-23 18:08 | XR ---
EXAMINATION TYPE: XR chest 2V DATE OF EXAM: 07/23/2022 COMPARISON: Chest x-ray 07/22/2022 HISTORY: Fever, abnormal chest x-ray TECHNIQUE: Frontal and lateral views of the chest are obtained. FINDINGS: Cardiac mediastinal silhouette is stable. No evident pneumothorax or pleural effusion. The re are overlying leads. No evident pneumothorax or pleural effusion. Interstitium is mildly increased . Question some perihilar vascular indistinctness, prominence the central vascularity. IMPRESSION: Findings are similar to prior exam. No evident pneumonia.
[2022-07-23] MEDS: DEXTROSE 5%-0.2% NACL 1,000 ML IV SCH (18:53)
[2022-07-23 19:37] LABS: Appearance,Urine Clear (Clear); Bilirubin,Urine Negative (Negative); Blood,Urine Negative (Negative); Color,Urine Light Yellow; Glucose,Urine (UA) 4+ (Negative); Ketones,Urine Negative (Negative); Leukocyte Esterase,Urine Negative (Negative); Nitrite,Urine Negative (Negative); PH, Urine 6.5 (5.0-8.0); Protein,Urine Negative (Negative); Specific Gravity,Urine 1.025 (1.001-1.035); Urobilinogen,Urine <2.0 mg/dL (<2.0)
[2022-07-23 19:39] LABS: Glucose,Whole Blood 143 mg/dL (70-110)
[2022-07-23 19:57] LABS: Basophils # (A) 0.1 k/uL (0-0.2); Basophils % (A) 2 %; Eosinophils # (A) 0.1 k/uL (0-0.7); Eosinophils % (A) 1 %; HCT 46.4 % (39.0-53.0); HGB 15.2 gm/dL (13.0-17.5); Lymphocytes # (A) 0.4 k/uL (1.0-4.8); Lymphocytes % (A) 7 %; MCH 29.4 pg (25.0-35.0); MCHC 32.9 g/dL (31.0-37.0); MCV 89.5 fL (80.0-100.0); Mean Platelet Volume 8.7; Monocytes # (A) 0.8 k/uL (0-1.0); Monocytes % (A) 13 %; Neutrophils # (A) 4.8 k/uL (1.3-7.7); Neutrophils % (A) 75 %; Platelet Count 181 k/uL (150-450); RBC 5.18 m/uL (4.30-5.90); RDW 13.6 % (11.5-15.5); WBC 6.3 k/uL (3.8-10.6)
[2022-07-24 00:04] VITALS: RESP 16
--- NOTE | 2022-07-24 02:01 | HP ---
HISTORY AND PHYSICAL CHIEF COMPLAINT: Rapid heart beating. HISTORY OF PRESENT ILLNESS: This is another admission for this 47-year-old white male. He has had longstanding history of mild hypertension and shortness of breath. He has been worked up in [place] and has apparently been determined that he does not have cardiomyopathy. He woke up in the morning of admission with rapid heart beating. He did not have any lightheadedness, chest pain, shortness of breath, etc. He came to emergency room, where he was in new onset atrial fibrillation with a rate of around 130. REVIEW OF SYSTEMS: Otherwise unremarkable. Past medical history, family history, and personal and social histories reveal that he is allergic to sulfa and Lasix. MEDICATIONS: He is on: 1. Trulicity. 2. Jardiance. 3. Benazepril. 4. Metoprolol. 5. Hydrochlorothiazide. 6. Vitamin D. 7. Ventolin HFA. SOCIAL HISTORY: He used to smoke, but does not any longer. He drinks alcohol occasionally. He does not use any other drugs. PHYSICAL EXAMINATION: VITAL SIGNS: Blood pressure 130/80 with a pulse of 130, respirations were 32, and he is afebrile. GENERAL: Appeared to be slightly overweight, in no acute distress. SKIN: Color is normal. Skin is warm and dry. LYMPH NODES: Not enlarged. HEAD, EARS, EYES, NOSE, MOUTH, AND THROAT: Normal. NECK: Neck veins are not distended. Thyroid is not enlarged. CHEST: Clear. CARDIAC: Demonstrates his rapid heart rate. ABDOMEN: Protuberant, soft, and there are no masses or visceromegaly. EXTREMITIES: Normal. There is no swelling in either leg, tenderness, Homans, etc. NEUROLOGICAL: He is intact. ASSESSMENT: He is admitted to the hospital with the diagnoses of: 1. New onset atrial fibrillation with rapid ventricular response. 2. History of hypertension. 3. History of shortness of breath. 4. Type 2 diabetes mellitus. PLAN: 1. Bedrest. 2. IV fluids. 3. Cardizem intravenously. 4. Cardiology consult. 5. Echocardiogram. 6. Anticoagulate. MMODL / IJN: [id number] /
[2022-07-24] MEDS: DEXTROSE 5%-0.2% NACL 1,000 ML IV SCH ×2 (03:58→06:16)
[2022-07-24 06:15] LABS: Glucose,Whole Blood 124 mg/dL (70-110)
[2022-07-24] MEDS: INSULIN ASPART (NovoLOG) 100 UNIT/ML VIAL SQ SCH ×2 (06:49→12:59)
[2022-07-24] MEDS: cycloSPORINE 0.05% OPHTH 0.4 ML DROPERETTE BOTH EYES SCH (09:23)
[2022-07-24] MEDS: lisinopriL 10 MG TAB PO SCH (09:23)
[2022-07-24] MEDS: APIXABAN 5 MG TAB PO SCH (09:23)
[2022-07-24] MEDS: METOPROLOL SUCCINATE (ER) 100 MG TAB.ER.24H PO SCH (09:23)
[2022-07-24] MEDS: hydroCHLOROthiazide 25 MG TAB PO SCH (09:24)
[2022-07-24] MEDS: ACETAMINOPHEN TAB 325 MG TAB PO PRN (09:25)
[2022-07-24 10:08] VITALS: BP 143/89; PULSE 81; TEMP 98.3
--- NOTE | 2022-07-24 11:19 | P.PN ---
Subjective Progress Note Date: 07/24/22 HISTORY OF PRESENT ILLNESS: This is a 47-year-old male with a past medical history significant for hypertension and "thyroid swelling" (sees a doctor at [facility] for thyroid issues). Patient does not follow with a room service food service attendant. We have been asked to see the patient in consultation for atrial fibrillation. Patient examined at the bedside. Patient states he woke up this morning and did not feel well. He reports feeling "stuffy". He reports shortness of breath and palpitations. Zoial kemp presented to the emergency room for further evaluation. He was found to be in atrial for relation with RVR. The patient denies a history of atrial fibrillation. The patient does report seeing Dr. Orozco at [facility] in the past for tachycardia. However he states he has never been diagnosed with atrial fibrillation. He remains in afib with rvr around 140. He is on a Cardizem drip at 10mg/hr. Blood pressure 103/76. He denies alcohol use, smoking, or drug use. * EKG reveals atrial fibrillation with RVR * Chest xray coarsened interstitium associated with chronic interstitial lung disease * Laboratory data: WBC 6.7. Hemoglobin 15.9. Platelet count 181. Sodium 140. Potassium 4.2. BUN 19. Creatinine 0.65. Troponin negative 1. TSH 1.250 * Current home cardiac medications include metoprolol succinate 75 mg twice a day, hydrochlorothiazide 6.25mg daily, and Benzapril 10mg daily 07/23/2022 Patient examined this morning at the bedside. Patient converted to sinus mechanism last night. His Cardizem drip has been discontinued. He remains in sinus mechanism this morning. He denies chest pain or pressure. He denies shortness of breath. Vital signs are stable. 07/24/2022 Patient examined this morning at the bedside. Patient developed fever last night and was found to be positive for Covid. He denies chest pain or pressure. Denies SOB. Telemetry reveals sinus mechanism. Echo reveals EF 45% with mild MR. PHYSICAL EXAM: VITAL SIGNS: Reviewed. GENERAL: Well-developed in no acute distress. HEENT: Head is normocephalic. Pupils are equal, round. Sclerae anicteric. Mucous membranes of the mouth are moist. Neck supple. No JVD or thyromegaly LUNGS: Respirations even and unlabored. Lungs essentially clear to auscultation bilaterally. HEART: Regular rate and rhythm. S1 and S2 heard. ABDOMEN: Soft. Nondistended. Nontender. EXTREMITIES: Normal range of motion. No clubbing or cyanosis. Peripheral pulses intact. No lower extremity edema NEUROLOGIC: Awake and alert. Oriented x 3. ASSESSMENT: New onset paroxysmal atrial fibrillation with RVR Hypertension History of thyroid nodules, followed at [facility] Diabetes Covid 19 PLAN: Continue current cardiac medications Patient requesting to follow-up with his room service food service attendant at [facility] that he has seen in the past Stable for discharge home today from a cardiac standpoint Nurse practitioner note has been reviewed by physician. Signing provider agrees with the documented findings, assessment, and plan of care. Objective - Vital Signs Vital signs: Vital Signs Temp 98.3 F 07/24/22 09:20 Pulse 81 07/24/22 09:20 Resp 16 07/24/22 09:20 BP 143/89 07/24/22 09:20 Pulse Ox 96 07/24/22 09:20 FiO2 Intake & Output 07/23/22 07/24/22 07/24/22 18:59 06:59 18:59 Intake Total 360 480 118 Balance 360 480 118 Intake: Oral 360 480 118 Other: Voiding Method Toilet # Voids 2 - Labs CBC & Chem 7: 07/23/22 18:30 07/22/22 07:23 Labs: Abnormal Lab Results - Last 24 Hours (Table) 07/23/22 07/23/22 07/23/22 Range/Units 11:54 18:30 18:50 Lymphocytes # 0.4 L (1.0-4.8) k/uL POC Glucose (mg/dL) 116 H (70-110) mg/dL Urine Glucose (UA) 4+ H (Negative) Coronavirus (PCR) (Not Detectd) 07/23/22 07/23/22 07/24/22 Range/Units 18:50 19:37 06:13 Lymphocytes # (1.0-4.8) k/uL POC Glucose (mg/dL) 143 H 124 H (70-110) mg/dL Urine Glucose (UA) (Negative) Coronavirus (PCR) Detected A (Not Detectd)
[2022-07-24 11:38] LABS: Glucose,Whole Blood 117 mg/dL (70-110)
--- NOTE | 2022-07-24 21:14 | PN ---
PROGRESS NOTE CHIEF COMPLAINT: Atrial fibrillation. HISTORY OF PRESENT ILLNESS: This gentleman is feeling fine this morning. He is in sinus rhythm. He was cleared to go home by Cardiology. When the nurse was discharging him, he stated that he did not feel good and had a headache. The headache was behind his eyes. His temperature was taken at 102.4, and his blood pressure went up to 180/94. He had no sore throat, cough, urinary complaints, chest pain, abdominal pain, etc. 1:02 am 0.4 and his blood pressure went up to 180/94. He has had no rashes. No sore throat, cough, urinary complaints, chest pain, abdominal pain, etc. PREOPERATIVE DIAGNOSIS: Completely normal. He is in sinus rhythm. IMPRESSION: 1. New-onset atrial fibrillation with rapid ventricular response. 2. Fever of unknown origin. PLAN: 1. Cancel discharge. 2. UA, chest x-ray, CBC, blood culture, and start IV fluids. MMODL / IJN: [id number] /
--- NOTE | 2022-07-28 03:12 | DS ---
DISCHARGE SUMMARY CHIEF COMPLAINT: Dizziness and rapid heart beating. HISTORY OF PRESENT ILLNESS AND PHYSICAL EXAMINATION: Details of this man's history and physical can be found in the initial workup. LABORATORY STUDIES: While he was in the hospital, he had laboratory studies, details of which can be found in the laboratory section of his chart. COURSE IN THE HOSPITAL: After admission, he was placed on bedrest and started on intravenous fluids and placed on Cardizem drip. He converted to sinus rhythm. While he was in the hospital, he was tested for COVID and it was positive. He had no significant symptoms. It was felt that he could be discharged home and he is cleared by Cardiology on the . He will be given a prescription for Paxlovid, and he will be anticoagulated. He will be seen in the office in several days. FINAL DIAGNOSES: 1. New onset rapid ventricular response, atrial fibrillation. 2. COVID-19. 3. History of chest pain. 4. Sleep apnea. OPERATIONS: None. CONSULTATION: Cardiology. CONDITION: He is improved. MMALEKSANDR / RANDI: [id number] /
== END 2022-07-24 13:04 | disposition home or self-care (01) ==
LOC: EC 06:35 → INTOOBSV 08:51 → 3SCARD 08:51 → UNDODISIN 07-24 13:04
PROVIDERS: ADMIT Family Medicine; ATTEND Family Medicine
DX: I48.0 Paroxysmal atrial fibrillation (principal); U07.1 COVID-19; G47.30 Sleep apnea, unspecified; J44.9 Chronic obstructive pulmonary disease, unspecified; E11.9 Type 2 diabetes mellitus without complications; I34.0 Nonrheumatic mitral (valve) insufficiency; I10 Essential (primary) hypertension; E04.1 Nontoxic single thyroid nodule; Z79.899 Other long term (current) drug therapy; Z88.2 Allergy status to sulfonamides; Z88.8 Allergy status to other drugs, medicaments and biological substances; Z87.891 Personal history of nicotine dependence
CPT/HCPCS: 96376; 96365; 96366; 96375; 99291; 36415; 93005; 93306; 85379; 83880; 80061; 80053; 84443; 83735; 84484; 85025 ×2; 85610; 85730; 81003; 87040; 83036; 87635 ×2; 71046 ×2; G0378 ×3; J1644 ×2; 96374

== ENCOUNTER → 2022-10-01 | Outpatient (CLI) | payer OTHER ==
[2022-10-01 18:42] LABS: African American GFR (CKD) 122.4 (60.0-200.0); Non-African American GFR(CKD) 105.6 (60.0-200.0)
== END | disposition home or self-care (01) ==
LOC: LABWHC1 10:12
PROVIDERS: ATTEND Nurse Practitioner Family
DX: R79.82 Elevated C-reactive protein (CRP) (principal)
CPT/HCPCS: 36415; 82565

== ENCOUNTER → 2022-10-05 | Outpatient (CLI) | payer OTHER | END | disposition home or self-care (01) | LOC: LABWHC1 12:45 | PROVIDERS: ATTEND Nurse Practitioner Family | DX: R79.82 Elevated C-reactive protein (CRP) (principal) | CPT/HCPCS: 36415; 82550 ==

== ENCOUNTER → 2022-12-25 | Outpatient (CLI) | payer OTHER | END | disposition home or self-care (01) | LOC: LABPAT 13:05 | PROVIDERS: ATTEND Surgery | DX: Z53.9 Procedure and treatment not carried out, unspecified reason (principal) ==

== ENCOUNTER 2022-12-28 07:41 | Day surgery (SDC) | payer OTHER ==
[~2022-12-28 07:41] MED LIST changes: +ACETAMINOPHEN TAB 500 MG TAB PO PRN; -CASIRIVIMAB/IMDEVIMAB (EUA) 1,200 MG in SODIUM CHLORIDE 0.9% 100 ML IVPB ONE; +DEXAMETHASONE SOD PHOSPHATE 4 MG/ML 1 ML VIAL IV ONE; +HEPARIN SODIUM,PORCINE/PF 5,000 UNIT/0.5 ML SYRINGE SQ PRN; +HYDROmorphone 0.5 MG/0.5 ML SYRINGE IVP PRN; +LACTATED RINGERS 1,000 ML IV SCH; +LIDOCAINE 1% (10MG/ML) FOR IV START INTRADERMA PRN; +ONDANSETRON 4 MG/2 ML VIAL IVP ONE; +Pre Op ABX Message 1 EACH MISC MISCELLANE ONE; -SODIUM CHLORIDE 0.9% 50 ML IVPB ONE; -SODIUM CHLORIDE 0.9% 500 ML 500 ML in EMPTY BAG 1 BAG IV PRN
[2022-12-28 08:24] LABS: Glucose,Whole Blood 101 mg/dL (70-110)
[2022-12-28] MEDS ORDERED: LACTATED RINGERS 1,000 ML IV ONE (08:35)
[2022-12-28] MEDS ORDERED: MIDAZOLAM 2 MG/2 ML VIAL IVP ONE (08:37)
[2022-12-28] MEDS ORDERED: LIDOCAINE 2% INJ 20 MG/ML (2 ML VIAL) ONE (09:15)
[2022-12-28] MEDS ORDERED: PROPOFOL 10 MG/ML 20 ML VIAL IV ONE (09:15)
[2022-12-28] MEDS ORDERED: SUCCINYLCHOLINE CHLORIDE 200 MG/10 ML VIAL IV ONE (09:15)
[2022-12-28] MEDS ORDERED: ceFAZolin 1,000 MG VIAL ONE (09:15)
[2022-12-28] MEDS ORDERED: MIDAZOLAM 2 MG/2 ML VIAL ONE (09:15)
[2022-12-28] MEDS ORDERED: fentaNYL (PF) 50 MCG/ML 2 ML AMP ONE (09:15)
[2022-12-28] MEDS ORDERED: SODIUM CHLORIDE 0.9% 50 ML with ceFAZolin 2,000 MG IV ONE ×2 (09:20)
[2022-12-28] MEDS ORDERED: BUPIVACAIN-EPI 0.25%-1:200,000 30 ML VIAL SQ ONE ×2 (09:34→09:39)
[2022-12-28] MEDS ORDERED: NALOXONE 0.4 MG/ML 1 ML VIAL IV PRN (10:04)
[2022-12-28] MEDS ORDERED: HYDROcodone/APAP 5-325MG 1 EACH TAB PO PRN (10:04)
[2022-12-28 10:12] VITALS: TEMP 97.1
[2022-12-28 11:23] VITALS: BP 108/72; PULSE 85; RESP 18
--- NOTE | 2023-01-07 17:02 | P.OP ---
Date of Procedure: 01/07/23 Procedure(s) Performed: PREOPERATIVE DIAGNOSIS: Muscle weakness POSTOPERATIVE DIAGNOSIS: Same PROCEDURE: Left quadriceps muscle biopsy SURGEON: Johan EBL: 5 mL ANESTHESIA: Gen. COMPLICATIONS: None OPERATIVE PROCEDURE: Patient placed in the operative table in the supine position. The patient's left thigh was prepped and draped sterilely. A longitudinal incision was made overlying the mid left thigh. Subcutaneous tissues and fascia were divided using cautery. 3 separate portions of muscle of the quadriceps were then removed per [facility] recommendations. His were sent to pathology at that time. No bleeding was seen. Fascia reapproximated using a running 3-0 Vicryl stitch. Subcutaneous tissues closed using a 3-0 Vicryl sutures. Skin closed using a running 4-0 Monocryl suture. Skin glue and sterile dressings were then applied. DISPOSITION: Stable to recovery room
== END 2022-12-28 11:42 | disposition home or self-care (01) ==
LOC: OR 07:41
PROVIDERS: ATTEND Surgery
DX: M62.81 Muscle weakness (generalized) (principal); I10 Essential (primary) hypertension; G47.30 Sleep apnea, unspecified; I48.91 Unspecified atrial fibrillation; E78.5 Hyperlipidemia, unspecified; E66.9 Obesity, unspecified; Z82.49 Family history of ischemic heart disease and other diseases of the circulatory system; Z87.891 Personal history of nicotine dependence; Z88.2 Allergy status to sulfonamides; E03.9 Hypothyroidism, unspecified; Z79.899 Other long term (current) drug therapy; Z68.42 Body mass index [BMI] 45.0-49.9, adult
CPT/HCPCS: 20205; 84132; 87635 ×2; J2250; J0330; J1100; J2405; J0690; J3010; J2704; J1644; J2001

== ENCOUNTER → 2024-06-01 | Outpatient (CLI) | payer MEDICARE ==
--- NOTE | 2024-06-01 15:21 | MR ---
EXAMINATION TYPE: MR knee RT wo con DATE OF EXAM: 06/01/2024 COMPARISON: Outside radiograph 05/23/2024 HISTORY: 48-year-old male M25.561, RT KNEE PAIN TECHNIQUE: Multiplanar, multisequence imaging of the right knee is performed without IV contrast. FINDINGS: There is diffuse subcutaneous soft tissue edema. The ACL and PCL are intact. The MCL and LCL complex are intact. The medial meniscus appears intact. There is mild diffuse thinning of medial compartment articular ca rtilage volume. Some associated degenerative subchondral signal change along the posterior weightbear ing aspect of the medial femoral condyle. Marginal spurring is present. There is a 6 mm parameniscal cyst at the anterior root insertion of the lateral meniscus but no discr ete tear identified. Lateral compartment articular cartilage volume is maintained. Moderate irregular cartilage loss along the lateral patellar facet and mild diffuse thinning of artic ular cartilage along the trochlear facets. Mild marginal spurring. Extensor mechanism is intact. Small knee joint effusion without Salazar's cyst. Normal popliteal artery anatomy and muscle bulk. No suspicious bone marrow replacement. IMPRESSION: 1. A 6 mm parameniscal cyst at the anterior root insertion of the lateral meniscus, indirect sign of an underlying tear though no visible meniscal tear is appreciated at this time. 2. Mild medial compartmental OA especially along the posterior weightbearing aspect of the joint. 3. Mild overall patellofemoral compartmental OA especially with moderate irregular cartilage loss jan ng the lateral patellar facet. 4. Generalized subcutaneous soft tissue swelling. Small knee joint effusion.
== END | disposition home or self-care (01) ==
LOC: RADMRIMAIN 13:13
PROVIDERS: ATTEND Orthopaedic Surgery
DX: R52 Pain, unspecified

== ENCOUNTER → 2024-06-12 | Outpatient (CLI) | payer MEDICARE ==
[2024-06-12 15:27] LABS: Basophils # (A) 0.04 X 10*3/uL (0.00-0.10); Basophils % (A) 0.6 %; Eosinophils % (A) 6.3 %; HCT 41.9 % (39.6-50.0); Lymphocytes # (A) 1.44 X 10*3/uL (0.90-5.00); Lymphocytes % (A) 22.8 %; MCH 30.6 pg (27.0-32.0); MCHC 33.4 g/dL (32.0-37.0); MCV 91.5 FL (80.0-97.0); Mean Platelet Volume 11.1 FL (9.5-12.2); Monocytes # (A) 0.85 X 10*3/uL (0.20-1.00); Monocytes % (A) 13.5 %; NRBC Per 100 WBC 0 X 10*3/uL (0.00-0.01); Neutrophils # (A) 3.57 X 10*3/uL (1.80-7.70); Neutrophils % (A) 56.6 %; Platelet Count 179 X 10*3/uL (140-440); RBC 4.58 X 10*6/uL (4.40-5.60); RDW 13.2 % (11.5-14.5); WBC 6.31 X 10*3/uL (4.50-10.00)
[2024-06-12 15:53] LABS: Anion Gap 14.4 mmol/L (4.00-12.00); Carbon Dioxide 24.6 mmol/L (21.6-31.8); Potassium 4.3 mmol/L (3.5-5.5)
== END | disposition home or self-care (01) ==
LOC: LABWHC1 10:59
PROVIDERS: ATTEND Orthopaedic Surgery
DX: M23.91 Unspecified internal derangement of right knee (principal)
CPT/HCPCS: 36415; 80051; 85025; 93005

== ENCOUNTER → 2024-06-16 | Outpatient (CLI) | payer MEDICARE ==
--- NOTE | 2024-06-21 03:41 | MR ---
EXAMINATION TYPE: MR knee LT wo con DATE OF EXAM: 06/16/2024 COMPARISON: Left leg x-ray December 10, 2021 HISTORY: left knee medial pain and swelling for 4 months TECHNIQUE: Multiplanar, multisequence images of the knee is performed without IV contrast. FINDINGS: Suboptimal study due to motion artifact. Suboptimal study due to inhomogeneity of the fat s aturation pulse. MEDIAL MENISCUS: Anterior and posterior horns are intact without tear. LATERAL MENISCUS: Anterior and posterior horns are intact without tear. CRUCIATE LIGAMENTS: The anterior and posterior cruciate ligaments are intact and unremarkable. COLLATERAL LIGAMENTS: The medial collateral ligament and lateral collateral ligament complex are inta ct and unremarkable. EXTENSOR MECHANISM: Visualized quadriceps and patellar tendons are intact. EFFUSION: No significant suprapatellar joint effusion. POPLITEAL CYST: No popliteal/cesar cyst. TRICOMPARTMENT SPACES: Mild to moderate tricompartment joint space loss. Mild spurring patellofemoral and medial tibiofemoral compartments. CARTILAGE: Some chondromalacia patella along the lateral aspect. Slight lateral positioning or tiltin g of the patella. BONE MARROW SIGNAL: No focal abnormal marrow signal is appreciated. OTHER: Mild/moderate diffuse subcutaneous edema. IMPRESSION: [id number] tricompartment degenerative changes are present as detailed above. Subop timal study without definitive meniscal or ligamentous tear. [facility], , 06/21/2024 3:38 AM
== END | disposition home or self-care (01) ==
LOC: RADMRIMAIN 18:46
PROVIDERS: ATTEND Orthopaedic Surgery
DX: M25.562 Pain in left knee

== ENCOUNTER 2024-07-05 08:05 | Day surgery (SDC) | payer MEDICARE ==
[2024-06-29 13:00] VITALS: BMI 46.3
--- NOTE | 2024-07-04 12:29 | HP ---
HISTORY AND PHYSICAL DATE OF SCHEDULED SURGERY: 07/05/2024. HISTORY OF PRESENT ILLNESS: Sarath Bob is a 49-year-old gentleman, seen with progressive right knee pain. We discussed treatment options. He elected to proceed with right knee arthroscopy. Consent was obtained. PAST MEDICAL HISTORY: 1. Hypertension. 2. Xlc-hdeoudt-nvpbwseeu diabetes. 3. Asthma. 4. Cardiovascular disease. 5. Atrial fibrillation. PAST SURGICAL HISTORY: Noncontributory. DAILY MEDICATIONS: 1. Albuterol. 2. Benazepril. 3. Gabapentin. 4. Meloxicam. 5. Metformin. 6. Metoprolol. 7. Tramadol. ALLERGIES: Sulfa. SOCIAL HISTORY: He denies current tobacco use. PHYSICAL EVALUATION OF THE RIGHT KNEE: Range of motion is 0 to 100 degrees. Mild effusion. Tenderness along the medial and lateral joint lines. Positive medial Sunny's. Positive lateral Sunny's. Ligament is stable. Hip rotation without pain. Distal neurovascular exam is intact. IMAGING STUDIES: Right knee radiographs revealed mild osteoarthritis. MRI of right knee revealed a lateral parameniscal cyst and intra-articular effusion. IMPRESSION: 1. Internal derangement of right knee with lateral meniscal tear and parameniscal cyst. 2. Hypertension. 3. Fgn-pxgafmm-gatvicvuu diabetes. 4. Atrial fibrillation. PLAN: Right knee arthroscopy with partial lateral meniscectomy, excision of parameniscal cyst and debridement. MMODL / FLORYN: [id number] /
[~2024-07-05 08:05] MED LIST changes: -ACETAMINOPHEN TAB 500 MG TAB PO PRN; -DEXAMETHASONE SOD PHOSPHATE 4 MG/ML 1 ML VIAL IV ONE; -HEPARIN SODIUM,PORCINE/PF 5,000 UNIT/0.5 ML SYRINGE SQ PRN; -LACTATED RINGERS 1,000 ML IV SCH; -LIDOCAINE 1% (10MG/ML) FOR IV START INTRADERMA PRN; -ONDANSETRON 4 MG/2 ML VIAL IVP ONE; -Pre Op ABX Message 1 EACH MISC MISCELLANE ONE
[2024-07-05 08:41] VITALS: TEMP 97.4
[2024-07-05] MEDS: ONDANSETRON 4 MG/2 ML VIAL IVP ONE (09:08)
[2024-07-05] MEDS: LACTATED RINGERS 1,000 ML IV SCH (09:08)
[2024-07-05] MEDS: DEXAMETHASONE SOD PHOSPHATE 4 MG/ML 1 ML VIAL IV ONE (09:09)
[2024-07-05] MEDS: IV FLUID CONTINUATION 1,000 ML IV ONE (09:10)
[2024-07-05] MEDS ORDERED: MIDAZOLAM 2 MG/2 ML VIAL ONE (09:15)
[2024-07-05] MEDS ORDERED: fentaNYL (PF) 50 MCG/ML 2 ML AMP ONE (09:15)
[2024-07-05] MEDS ORDERED: KETOROLAC 15 MG/ML 1 ML VIAL ONE (09:15)
[2024-07-05] MEDS ORDERED: PROPOFOL 10 MG/ML 20 ML VIAL IV ONE (09:15)
[2024-07-05] MEDS ORDERED: LIDOCAINE 1% INJ 10MG/ML (20 ML MDV) ONE (09:15)
[2024-07-05] MEDS ORDERED: SUCCINYLCHOLINE CHLORIDE 200 MG/10 ML VIAL IV ONE (09:15)
[2024-07-05] MEDS ORDERED: PHENYLEPHRINE-0.9% NACL SYG 1,000 MCG/10 ML SYRINGE ONE (09:15)
[2024-07-05] MEDS: ceFAZolin 3 GM in SODIUM CHLORIDE 0.9% 100 ML IVPB PRN (09:20)
[2024-07-05] MEDS: BUPIVACAINE (PF) 0.25% 30 ML VIAL INTRAARTIC ONE (09:41)
--- NOTE | 2024-07-05 10:14 | P.OP ---
Date of Procedure: 07/05/24 Preoperative Diagnosis: Internal derangement right knee Postoperative Diagnosis: 1. Tear medial and lateral meniscus right knee 2. Grade IV chondromalacia medial femoral condyle right knee 3. Grade IV chondromalacia femoral sulcus right knee 4. Reactive synovitis medial, lateral and suprapatellar compartments right knee Procedure(s) Performed: 1. Arthroscopic partial medial and lateral meniscectomy right knee 2. Arthroscopic microfracture medial femoral condyle right knee 3. Arthroscopic microfracture femoral sulcus right knee 4. Arthroscopic partial synovectomy medial, lateral and suprapatellar compartments right knee Anesthesia: IVANNAA, local Surgeon: Jasmeet Guzman Estimated Blood Loss (ml): 7 Pathology: none sent Condition: stable Disposition: PACU Indications for Procedure: 49-year-old patient seen with progressive right knee pain. After having treatment options discussed, he elected to proceed with arthroscopy. Operative Findings: See description of procedure Description of Procedure: Patient was taken to the operative suite. Patient underwent a general anesthetic by the department of anesthesia. Patient was given preoperative antibiotics. The right lower extremity was placed in a well-padded arthroscopic leg mendieta. The right leg was prepped and draped in the normal sterile orthopedic fashion. A lateral parapatellar and suprapatellar incision was made. Trochars were inserted. Arthroscopy was initiated. Suprapatellar pouch revealed diffuse thick reactive synovitis. The patellofemoral joint appeared to articulate congruently. There was grade 1/2 combination patella and grade 3/4, extra femoral sulcus with large diffuse osteochondral flap tears present. The scope was guided into the medial gutter. No loose bodies or plica were identified. The scope was then guided into the medial compartment. A medial parapatellar incision was made. Trocar inserted followed by probe. Was a radial tear posterior horn medial meniscus. There were grade 3/4, changes medial femoral condyle with some osteochondral flap tears. There was some thick reactive synovitis anteriorly. I performed a partial medial meniscectomy getting down to stable meniscal tissue. I performed a chondroplasty of the medial femoral condyle getting down to stable osteochondral tissue. I performed a partial synovectomy decompressing the reactive synovitis. There was an area of grade IV chondromalacia involving the weightbearing surface medial femoral condyle measuring just under centimeter. I introduced a microfracture awl and I performed a microfracture to the area of exposed bone penetrating the bone with resultant bleeding at the microfracture site. The residual meniscus was probed and was found to be stable. The residual osteochondral surface was stable. There was good decompression of the synovitis. Scope and probe were then guided into the intercondylar notch. Cruciates were identified, probed and found to be stable. The scope and probe were then guided into lateral compartm ent. The tear involving the mid body lateral meniscus. There was grade I chondromalacia of the lateral tibial plateau. There was thick reactive synovitis anteriorly. I performed a partial lateral meniscectomy getting down to stable meniscal tissue. I performed a partial synovectomy decompressing the reactive synovitis. The residual meniscus was stable. There was good decompression of the synovitis. The scope was in guided back into the suprapatellar compartment. I introduced a motorized shaver into the supra compartment. I debrided some piecemeal fragments of meniscus I encountered. I performed a partial synovectomy. And I performed a chondroplasty of the femoral sulcus getting down to stable osteochondral tissue. The shaver was removed. There was an area of grade IV chondromalacia/exposed bone involving the femoral sulcus measuring about 2 x 2 cm. There was a separate area more medially of grade IV chondromalacia/exposed bone measuring about a centimeter. I now used a microfracture awl and I performed to separate microfractures to the area of exposed bone measuring 2 x 2 cm penetrating the bone with resultant bleeding at both microfracture sites. I now performed a microfracture to the area of exposed bone measuring 1 x 1 cm penetrating the bone with resultant bleeding at the microfracture site. The residual osteochondral surface was probed and was found to be stable. I again noted good decompression of the synovitis. I took 1 more look around the entire knee, no residual debris. Instruments were now removed from the joint. The joint was infiltrated with .25% Marcaine. Steri- Strips were applied to the portal sites. Sterile dressings were applied. The patient was placed into a HUSSEIN hose. No tourniquet was utilized. The patient was awakened, transferred to a bed and taken to recovery stable satisfactory condition.
[2024-07-05 10:39] LABS: Glucose,Whole Blood 158 mg/dL (70-110)
[2024-07-05] MEDS: HYDROcodone/APAP 7.5-325MG 1 EACH TAB PO PRN (11:13)
[2024-07-05 11:36] VITALS: BP 104/71; PULSE 76; RESP 16
[2024-07-07 07:17] LABS: Glucose,Whole Blood 153 mg/dL (70-110)
== END 2024-07-05 11:49 | disposition home or self-care (01) ==
LOC: OR 08:05
PROVIDERS: ATTEND Orthopaedic Surgery

== ENCOUNTER 2024-07-30 19:44 | Observation (INO) | payer MEDICARE ==
[2024-07-30 20:29] LABS: Basophils % (A) 0 %; Eosinophils # (A) 0.6 k/uL (0-0.7); Eosinophils % (A) 7 %; HCT 43.9 % (39.0-53.0); HGB 14.9 gm/dL (13.0-17.5); Lymphocytes # (A) 1.8 k/uL (1.0-4.8); Lymphocytes % (A) 22 %; MCH 31.1 pg (25.0-35.0); MCV 91.5 fL (80.0-100.0); Mean Platelet Volume 7.9; Monocytes # (A) 0.6 k/uL (0-1.0); Monocytes % (A) 7 %; Neutrophils # (A) 5.1 k/uL (1.3-7.7); Neutrophils % (A) 61 %; Platelet Count 214 k/uL (150-450); WBC 8.4 k/uL (3.8-10.6)
--- NOTE | 2024-07-30 20:37 | ED ---
Arrhythmia/Palpitations HPI - General Chief Complaint: Arrhythmia/Palpitations Stated Complaint: A-Fib Time Seen by Provider: 07/30/24 19:54 Source: patient, RN notes reviewed Mode of arrival: ambulatory Limitations: no limitations - History of Present Illness Initial Comments: This is a 49-year-old male who presents to the emergency department for palpi tations. Patient has a history of A-fib and feels like for the last 48 hours this has been acting up on him. Palpitations are the most prominent symptom. He had chest pressure last night that has since resolved. States that this lasted for about an hour. Denies any shortness of breath. Follows with [facility] cardiology. Denies any history of heart attacks. He is on Eliquis and metoprolol for the A-fib as well as other medications he cannot recall the name of. MD Complaint: palpitations, atrial fibrillation - Related Data Home Medications Medication Instructions Recorded Confirmed Benazepril [Lotensin] 10 mg PO DAILY 08/08/17 07/05/24 Ergocalciferol [Vitamin D2 (1250 1,250 mcg PO Q30D 07/22/22 07/05/24 Mcg = 28263 Iu)] Ezetimibe [Zetia] 10 mg PO DAILY 12/23/22 07/05/24 Gabapentin 600 mg PO QID 12/23/22 07/05/24 Bumetanide [BUMEX] 2 mg PO DAILY 06/29/24 07/05/24 Flecainide [Tambocor] 50 mg PO Q12HR 06/29/24 07/05/24 Insulin Glargine/Lixisenatide 100 units SQ DAILY 06/29/24 07/05/24 [Soliqua 100 Unit-33 Mcg/ml Pen] Insulin Lispro [humaLOG Kwikpen] 3 unit SQ TID-W/MEALS 06/29/24 07/05/24 Meloxicam [Mobic] 7.5 mg PO DAILY 06/29/24 07/05/24 Metoprolol Succinate (ER) [Toprol 50 mg PO BID 06/29/24 07/05/24 XL] metFORMIN HCL 500 mg PO DAILY 06/29/24 07/05/24 traMADol HCL 50 mg PO Q6H PRN 06/29/24 07/05/24 Previous Rx's Medication Instructions Recorded Apixaban [Eliquis] 5 mg PO BID #60 tab 07/22/22 HYDROcodone/APAP 7.5-325MG [[place] 1 each PO Q6HR PRN #18 tab 07/05/24 7.5] Allergies Allergy/AdvReac Type Severity Reaction Status Date / Time furosemide [From Lasix] Allergy Rash/Hives Verified 07/30/24 19:51 Sulfa (Sulfonamide Allergy Rash/Hives Verified 07/30/24 19:51 Antibiotics) torsemide Allergy Rash/Hives Verified 07/30/24 19:51 Review of Systems ROS Statement: Those systems with pertinent positive or pertinent negative responses have been documented in the HPI. ROS Other: All systems not noted in ROS Statement are negative. Past Medical History Past Medical History: Atrial Fibrillation, Diabetes Mellitus, Hypertension, Sleep Apnea/CPAP/BIPAP, Thyroid Disorder Additional Past Medical History / Comment(s): pulmonary hypertension, thyroid nodules 2020, diet controlled, uses cpap ,a fib is current controlled rate is looking at possible cardiac abaltaion in near future History of Any Multi-Drug Resistant Organisms: None Reported Past Surgical History: Heart Catheterization Additional Past Surgical History / Comment(s): rt heart cath Past Anesthesia/Blood Transfusion Reactions: No Reported Reaction Past Psychological History: Anxiety Smoking Status: Former smoker Past Alcohol Use History: Rare Past Drug Use History: None Reported - Past Family History Father History Unknown: Yes Family Medical History: Diabetes Mellitus, Hypertension Mother Family Medical History: AFIB, Cancer Sister(s) Family Medical History: AFIB General Exam Limitations: no limitations General appearance: alert, in no apparent distress Head exam: Present: atraumatic, normocephalic, normal inspection Respiratory exam: Present: normal lung sounds bilaterally. Absent: respiratory distress, wheezes, rales, rhonchi, stridor Cardiovascular Exam: Present: regular rate, normal rhythm, normal heart sounds. Absent: systolic murmur, diastolic murmur, rubs, gallop, clicks Neurological exam: Present: alert, oriented X3, CN II-XII intact Psychiatric exam: Present: normal affect, normal mood Skin exam: Present: warm, dry, intact, normal color. Absent: rash Course Vital Signs 07/30/24 07/30/24 07/30/24 19:49 20:23 23:43 Temperature 98.4 F Pulse Rate 93 83 82 Respiratory 16 18 18 Rate Blood Pressure 157/8 148/81 143/86 O2 Sat by Pulse 97 98 98 Oximetry Medical Decision Making - Medical Decision Making This is a 49 year old male who presents to the emergency department for palpitat ions. Was pt. sent in by a medical professional or institution? @ -No Did you speak to anyone other than the patient for history? @ -No Did you review nursing and triage notes? @ -Yes, and I agree, it is accurate with regards to the patient's symptoms. Were old charts reviewed? @ -No Differential Diagnosis? @ -Differential Palpitations: Ventricular arrhythmias, atrial arrhythmias, myocardial infarction, anemia, thyrotoxicosis, electrolyte imbalance, hypokalemia, pulmonary embolism, pulmonary disease, drugs, alcohol, anxiety, stress.... This is not meant to be an all-inclusive list. EKG interpreted by me (3pts min.)? @ -EKG interpreted by me demonstrating the following: Sinus rhythm. Ventricular rate 90 bpm, IN interval 179 ms, QRS duration 115 ms, QTc 423 ms. X-rays interpreted by me (1pt min.)? @ -Chest x-ray obtained, my interpretation identifies no localized consolidations or infiltrates. CT interpreted by me (1pt min.)? @ -Not obtained U/S interpreted by me (1pt. min.)? @ -Not obtained What testing was considered but not performed? (CT, X-rays, U/S, labs)? Why? @ -None What meds were considered but not given? Why? @ -None Did you discuss the management of the patient with other professionals? @ -Yes, Dr. Muñoz, who accepts the patient for admission. Did you reconcile home meds? @ -No Was smoking cessation discussed for >3mins.? @ -I discussed smoking cessation for greater than 3 minutes. The risk of smoking were discussed with the patient including but not limited to risks of cancer, stroke, coronary artery disease and COPD. Also discussed with patient were multiple methods of quitting smoking. Lastly we discussed the financial cost of smoking. Was critical care preformed (if so, how long)? @ -No Were there social determinants of health that impacted care today? How? (Homelessness, low income, unemployed, alcoholism, drug addiction, transportation, low edu. Level, literacy, decrease access to med. care, correction, rehab)? @ -No Was there de-escalation of care discussed even if they declined? (Discuss DNR or withdrawal of care, Hospice)? @ -No What co-morbidities impacted this encounter? (DM, HTN, Smoking, COPD, CAD, Cancer, CVA, Hep., AIDS, mental health diagnosis, sleep apnea, morbid obesity)? @ -A-fib, DM, HTN, smoking Was patient admitted / discharged? @ -Admitted. Lab work demonstrates signs of dehydration and was otherwise unremarkable. Chest x-ray reveals no acute process. Discussed options for disposition with the patient. States that he is not comfortable going home based on how prominent the palpitations have been over the last couple of days. He did also have a bout of chest pain/pressure yesterday lasting about an hour. Patient subsequently admitted to medicine for chest pain and palpitations for cardiac rule out. Serial troponins ordered. Consult placed for cardiology. Case discussed with ED attending Dr. Tomlin. Undiagnosed new problem with uncertain prognosis? @ -None Drug Therapy requiring intensive monitoring for toxicity (Heparin, Nitro, Insulin, Cardizem)? @ -None Were any procedures done? @ -None Diagnosis/symptom? @ -Chest pain, palpitations Acute, or Chronic, or Acute on Chronic? @ -Acute Uncomplicated (without systemic symptoms) or Complicated (systemic symptoms)? @ -Uncomplicated Side effects of treatment? @ -None Exacerbation, Progression, or Severe Exacerbation] @ -Not applicable Poses a threat to life or bodily function? @ -Yes, if due to ACS, can be life threatening - Lab Data Result diagrams: 07/30/24 20:15 07/30/24 20:15 Lab Results 07/30/24 07/30/24 07/30/24 Range/Units 20:15 20:15 20:15 WBC 8.4 (3.8-10.6) k/uL RBC 4.80 (4.30-5.90) m/uL Hgb 14.9 (13.0-17.5) gm/dL Hct 43.9 (39.0-53.0) % MCV 91.5 (80.0-100.0) fL MCH 31.1 (25.0-35.0) pg MCHC 34.0 (31.0-37.0) g/dL RDW 13.0 (11.5-15.5) % Plt Count 214 (150-450) k/uL MPV 7.9 Neutrophils % 61 % Lymphocytes % 22 % Monocytes % 7 % Eosinophils % 7 % Basophils % 0 % Neutrophils # 5.1 (1.3-7.7) k/uL Lymphocytes # 1.8 (1.0-4.8) k/uL Monocytes # 0.6 (0-1.0) k/uL Eosinophils # 0.6 (0-0.7) k/uL Basophils # 0.0 (0-0.2) k/uL PT 10.4 (10.0-12.5) sec INR 0.9 (<1.2) APTT 28.5 (22.0-30.0) sec Sodium 139 (137-145) mmol/L Potassium 4.3 (3.5-5.1) mmol/L Chloride 99 (98-107) mmol/L Carbon Dioxide 31 H (22-30) mmol/L Anion Gap 9 mmol/L BUN 26 H (9-20) mg/dL Creatinine 0.80 (0.66-1.25) mg/dL Est GFR (CKD-EPI)AfAm >90 (>60 ml/min/1.73 sqM) Est GFR (CKD-EPI)NonAf >90 (>60 ml/min/1.73 sqM) Glucose 161 H (74-99) mg/dL Calcium 9.4 (8.4-10.2) mg/dL Magnesium 1.8 (1.6-2.3) mg/dL Total Bilirubin 0.6 (0.2-1.3) mg/dL AST 93 H (17-59) U/L ALT 76 H (4-49) U/L Alkaline Phosphatase 120 (38-126) U/L Troponin I (0.000-0.034) ng/mL Total Protein 7.8 (6.3-8.2) g/dL Albumin 4.5 (3.5-5.0) g/dL TSH 1.510 (0.465-4.680) mIU/L 07/30/24 Range/Units 20:15 WBC (3.8-10.6) k/uL RBC (4.30-5.90) m/uL Hgb (13.0-17.5) gm/dL Hct (39.0-53.0) % MCV (80.0-100.0) fL MCH (25.0-35.0) pg MCHC (31.0-37.0) g/dL RDW (11.5-15.5) % Plt Count (150-450) k/uL MPV Neutrophils % % Lymphocytes % % Monocytes % % Eosinophils % % Basophils % % Neutrophils # (1.3-7.7) k/uL Lymphocytes # (1.0-4.8) k/uL Monocytes # (0-1.0) k/uL Eosinophils # (0-0.7) k/uL Basophils # (0-0.2) k/uL PT (10.0-12.5) sec INR (<1.2) APTT (22.0-30.0) sec Sodium (137-145) mmol/L Potassium (3.5-5.1) mmol/L Chloride (98-107) mmol/L Carbon Dioxide (22-30) mmol/L Anion Gap mmol/L BUN (9-20) mg/dL Creatinine (0.66-1.25) mg/dL Est GFR (CKD-EPI)AfAm (>60 ml/min/1.73 sqM) Est GFR (CKD-EPI)NonAf (>60 ml/min/1.73 sqM) Glucose (74-99) mg/dL Calcium (8.4-10.2) mg/dL Magnesium (1.6-2.3) mg/dL Total Bilirubin (0.2-1.3) mg/dL AST (17-59) U/L ALT (4-49) U/L Alkaline Phosphatase (38-126) U/L Troponin I <0.012 (0.000-0.034) ng/mL Total Protein (6.3-8.2) g/dL Albumin (3.5-5.0) g/dL TSH (0.465-4.680) mIU/L - Radiology Data Radiology results: report reviewed, image reviewed Disposition Clinical Impression: Chest pain, Palpitations, Nicotine dependence Disposition: ADMITTED IP TO THIS HOSP
[2024-07-30 20:41] LABS: INR 0.9 (<1.2); Partial Thromboplastin Time 28.5 sec (22.0-30.0); Prothrombin Time 10.4 sec (10.0-12.5)
[2024-07-30 20:42] LABS: ALT 76 U/L (4-49); AST 93 U/L (17-59); African American GFR (CKD) >90 (>60 ml/min/1.73 sqM); Albumin 4.5 g/dL (3.5-5.0); Alkaline Phosphatase 120 U/L (38-126); Anion Gap 9 mmol/L; Blood Urea Nitrogen 26 mg/dL (9-20); Calcium 9.4 mg/dL (8.4-10.2); Carbon Dioxide 31 mmol/L (22-30); Chloride 99 mmol/L (98-107); Glucose 161 mg/dL (74-99); Magnesium 1.8 mg/dL (1.6-2.3); Non-African American GFR(CKD) >90 (>60 ml/min/1.73 sqM); Potassium 4.3 mmol/L (3.5-5.1); Sodium 139 mmol/L (137-145); Total Bilirubin 0.6 mg/dL (0.2-1.3); Total Protein 7.8 g/dL (6.3-8.2)
[2024-07-30] MEDS: SODIUM CHLORIDE 0.9% 1,000 ML IV STA (20:46)
--- NOTE | 2024-07-30 20:47 | XR ---
EXAMINATION TYPE: XR chest 2V DATE OF EXAM: 07/30/2024 8:25 PM COMPARISON: None CLINICAL INDICATION: Male, 49 years old with history of dysrhythmia; [facility] TECHNIQUE: XR chest 2V Frontal and lateral views of the chest. FINDINGS: Lungs/Pleura: There is no evidence of pleural effusion, focal consolidation, or pneumothorax. Pulmonary vascularity: Unremarkable. Heart/mediastinum: Cardiomediastinal silhouette is unremarkable. Musculoskeletal: No acute osseous pathology. IMPRESSION: No acute cardiopulmonary disease/process. [facility], , 07/30/2024 8:45 PM
[2024-07-30] MEDS ORDERED: ONDANSETRON 4 MG/2 ML VIAL IVP PRN (21:24)
[2024-07-30] MEDS ORDERED: ACETAMINOPHEN TAB 325 MG TAB PO PRN (21:24)
[2024-07-30] MEDS ORDERED: NALOXONE 0.4 MG/ML 1 ML VIAL IV PRN (21:24)
[2024-07-30] MEDS ORDERED: MORPHINE SULFATE 4 MG/ML SYRINGE IV PRN (21:24)
[2024-07-31] MEDS: PANTOPRAZOLE 40 MG/10 ML VIAL IV SCH (08:04)
[2024-07-31] MEDS: FLECAINIDE 50 MG TAB PO SCH (08:52)
[2024-07-31] MEDS: METOPROLOL SUCCINATE (ER) 50 MG TAB.ER.24H PO SCH (08:53)
[2024-07-31] MEDS: lisinopriL 10 MG TAB PO SCH (08:53)
[2024-07-31] MEDS: EZETIMIBE 10 MG TAB PO SCH (08:54)
[2024-07-31] MEDS: APIXABAN 5 MG TAB PO SCH (08:54)
[2024-07-31] MEDS: BUMETANIDE 1 MG TAB PO SCH (08:54)
[2024-07-31] MEDS ORDERED: DOBUTamine DRIP for NUC MED 500 MG in DEXTROSE/WATER 1 250ML.BAG IV PRN (09:42)
--- NOTE | 2024-07-31 09:46 | P.CRDCN ---
History of Present Illness Consult date: 07/31/24 Consult reason: chest pain (Palpitations) History of present illness: This is 49-year-old male previously seen by Dr. Peace Ac and now follows with [facility] ball ender. He has a past medical of atrial fibrillation diagnosed 2 years ago, hypertension, hyperlipidemia, diabetes mellitus type 2. We have been asked to evaluate the patient for chest pain and palpitations. Patient states that on Wednesday afternoon he started feeling a fluttering feeling in his chest and skipping beats. On Wednesday morning it continued and he left a message at his PCP office and also called his ball ender at [facility] and left a message. He did hear back by Wednesday and then he came in to the hospital for further evaluation. On presentation, patient was in a sinus rhythm on EKG. He feels that the atrial fibrillation seem to have lightened and was only brief once he arrived here to the hospital. With his ball ender, he has discussed flecainide and adjusting the beta-chika and if those medications do not work, consider ablation. He denies any history of coronary artery disease. Patient did eat breakfast this morning. EKG: Sinus rhythm at 90 bpm Chest x-ray: No acute process. Laboratory studies: WBC 8.4, hemoglobin 14.9. Sodium 139, potassium 4.3, BUN 26 creatinine 0.8. Blood sugar 161. Magnesium 1.8. AST 93, ALT 76. Troponin negative x 4. TSH 1.51. Home cardiac medications: Eliquis 5 mg twice daily, benazepril 10 mg daily, Bumex 2 mg daily, Zetia 10 mg daily, flecainide 50 mg every 12 hours, Toprol XL 50 mg twice daily. Echocardiogram performed 07/22/2022 revealed EF of 45%, moderate to severely i ncreased left ventricular wall thickness, mild increased left atrial size, mild mitral regurgitation, no pericardial effusion. Review Of Systems: At the time of my exam: CONSTITUTIONAL: Denies fever or chills. HEENT: Denies blurred vision, vision changes, or eye pain. Denies hemoptysis CARDIOVASCULAR: Denies chest pain. Denies orthopnea. Denies PND. Denies palpitations RESPIRATORY: Denies shortness of breath. GASTROINTESTINAL: Denies abdominal pain. Denies nausea or vomiting. HEMATOLOGIC: Denies bleeding disorders. GENITOURINARY: Denies any blood in urine. SKIN: Denies puritis. Denies rash. Physical examination: Gen: This is a 49-year-old morbidly obese male in no acute distress VS: reviewed HEENT: Head is atraumatic, normocephalic. Pupils equal, round. Sclerae is anicteric. NECK: Supple. No JVD. LUNGS: Clear to auscultation. No wheezes or rhonchi. No intercostal retractions. HEART: Regular rate and rhythm. No murmur. ABDOMEN: Soft No tenderness. EXTREMITIES: No pedal edema. No calf tenderness. NEUROLOGICAL: Patient is awake, alert and oriented x3. Assessment: Paroxysmal atrial fibrillation with possible episode of A-fib with RVR at home Atypical chest pain, acute coronary syndrome ruled out Hypertension Hyperlipidemia Diabetes mellitus type 2 Plan: Resume patient's home cardiac medications and increase flecainide to 100 mg twice daily Continue telemetry monitoring Repeat EKG Wednesday morning Schedule patient for dobutamine stress echocardiogram on Wednesday as patient has had breakfast Obtain 2-D echocardiogram and Doppler study to assess cardiac structure and function Further recommendations to follow based upon clinical course Thank you kindly for this consultation. Nurse practitioner note has been reviewed, I agree with documented findings and plan of care. Patient was seen and examined. Past Medical History Past Medical History: Atrial Fibrillation, Diabetes Mellitus, Hypertension, Sleep Apnea/CPAP/BIPAP, Thyroid Disorder Additional Past Medical History / Comment(s): pulmonary hypertension, thyroid nodules 2020, diet controlled, uses cpap ,a fib is current controlled rate is looking at possible cardiac abaltaion in near future History of Any Multi-Drug Resistant Organisms: None Reported Past Surgical History: Heart Catheterization Additional Past Surgical History / Comment(s): rt heart cath Past Anesthesia/Blood Transfusion Reactions: No Reported Reaction Past Psychological History: Anxiety Smoking Status: Former smoker Past Alcohol Use History: Rare Past Drug Use History: None Reported - Past Family History Father History Unknown: Yes Family Medical History: Diabetes Mellitus, Hypertension Mother Family Medical History: AFIB, Cancer Sister(s) Family Medical History: AFIB Medications and Allergies Home Medications Medication Instructions Recorded Confirmed Type Benazepril [Lotensin] 10 mg PO DAILY 08/08/17 07/31/24 History Apixaban [Eliquis] 5 mg PO BID #60 tab 07/22/22 07/31/24 Rx Ergocalciferol [Vitamin D2 (1250 1,250 mcg PO QMONTHLY 07/22/22 07/31/24 History Mcg = 35306 Iu)] Ezetimibe [Zetia] 10 mg PO DAILY 12/23/22 07/31/24 History Gabapentin 600 mg PO QID 12/23/22 07/31/24 History Bumetanide [BUMEX] 2 mg PO DAILY 06/29/24 07/31/24 History Flecainide [Tambocor] 50 mg PO Q12HR 06/29/24 07/31/24 History Insulin Glargine/Lixisenatide 32 units SQ DAILY 06/29/24 07/31/24 History [Soliqua 100 Unit-33 Mcg/ml Pen] Insulin Lispro [humaLOG Kwikpen] 8 unit SQ TID-W/MEALS 06/29/24 07/31/24 History Meloxicam [Mobic] 7.5 mg PO BID PRN 06/29/24 07/31/24 History metFORMIN HCL 500 mg PO BID 06/29/24 07/31/24 History traMADol HCL 100 mg PO TID PRN 06/29/24 07/31/24 History HYDROcodone/APAP 7.5-325MG [[place] 1 tab PO Q6HR PRN 07/31/24 07/31/24 History 7.5] Metoprolol Succinate (ER) [Toprol 50 mg PO BID 07/31/24 07/31/24 History Xl] Allergies Allergy/AdvReac Type Severity Reaction Status Date / Time furosemide [From Lasix] Allergy Rash/Hives Verified 07/31/24 07:27 Sulfa (Sulfonamide Allergy Rash/Hives Verified 07/31/24 07:27 Antibiotics) torsemide Allergy Rash/Hives Verified 07/31/24 07:27 Physical Exam Vitals: Vital Signs Temp Pulse Resp BP Pulse Ox 07/31/24 07:22 76 18 136/94 97 07/31/24 06:29 70 18 118/71 98 07/31/24 03:51 67 18 118/76 97 07/30/24 23:43 82 18 143/86 98 07/30/24 20:23 83 18 148/81 98 07/30/24 19:49 98.4 F 93 16 157/8 97 Intake and Output 10/27/24 10/28/24 10/28/24 22:59 06:59 14:59 Other: Weight 138.346 kg Results 07/30/24 20:15 07/30/24 20:15 Cardiac Enzymes 07/30/24 07/30/24 07/31/24 Range/Units 20:15 20:15 00:10 AST 93 H (17-59) U/L Troponin I <0.012 <0.012 (0.000-0.034) ng/mL 07/31/24 07/31/24 Range/Units 03:17 06:25 AST (17-59) U/L Troponin I <0.012 <0.012 (0.000-0.034) ng/mL Coagulation 07/30/24 Range/Units 20:15 PT 10.4 (10.0-12.5) sec APTT 28.5 (22.0-30.0) sec CBC 07/30/24 Range/Units 20:15 WBC 8.4 (3.8-10.6) k/uL RBC 4.80 (4.30-5.90) m/uL Hgb 14.9 (13.0-17.5) gm/dL Hct 43.9 (39.0-53.0) % Plt Count 214 (150-450) k/uL Comprehensive Metabolic Panel 07/30/24 Range/Units 20:15 Sodium 139 (137-145) mmol/L Potassium 4.3 (3.5-5.1) mmol/L Chloride 99 (98-107) mmol/L Carbon Dioxide 31 H (22-30) mmol/L BUN 26 H (9-20) mg/dL Creatinine 0.80 (0.66-1.25) mg/dL Glucose 161 H (74-99) mg/dL Calcium 9.4 (8.4-10.2) mg/dL AST 93 H (17-59) U/L ALT 76 H (4-49) U/L Alkaline Phosphatase 120 (38-126) U/L Total Protein 7.8 (6.3-8.2) g/dL Albumin 4.5 (3.5-5.0) g/dL Current Medications Generic Name Dose Route Start Last Admin Trade Name Freq PRN Reason Stop Dose Admin Acetaminophen 650 mg 07/30/24 21:24 Acetaminophen Tab 325 Mg Tab PO Q6HR PRN Mild Pain or Fever > 100.5 Hydrocodone Bitart/Acetaminophen 1 each 07/30/24 21:24 Hydrocodone/Apap 5-325mg 1 Each Tab PO Q4HR PRN Moderate Pain (Scale 4 to 6) Morphine Sulfate 4 mg 07/30/24 21:24 Morphine Sulfate 4 Mg/Ml Syringe IV Q4HR PRN Severe Pain (Scale 7 to 10) Naloxone HCl 0.2 mg 07/30/24 21:24 Naloxone 0.4 Mg/Ml 1 Ml Vial IV Q2M PRN Opioid Reversal Ondansetron HCl 4 mg 07/30/24 21:24 Ondansetron 4 Mg/2 Ml Vial IVP Q8HR PRN Nausea And Vomiting Pantoprazole Sodium 40 mg 07/31/24 09:00 07/31/24 08:04 Pantoprazole 40 Mg/10 Ml Vial IV 40 mg DAILY RADHIKA Administration Intake and Output 07/30/24 07/31/24 07/31/24 22:59 06:59 14:59 Other: Weight 138.346 kg 07/30/24 20:15 07/30/24 20:15
[2024-07-31] MEDS: HYDROcodone/APAP 5-325MG 1 EACH TAB PO PRN (14:48)
[2024-07-31 20:24] LABS: Glucose,Whole Blood 185 mg/dL (70-110)
[2024-07-31] MEDS ORDERED: DEXTROSE 50% SYRINGE 50 ML IVP PRN ×2 (20:58)
[2024-07-31] MEDS: INSULIN ASPART (NovoLOG) 100 UNIT/ML VIAL SQ SCH (21:55)
[2024-07-31] MEDS: GABAPENTIN 300 MG CAP PO SCH (23:18)
[2024-08-01 05:53] LABS: Glucose,Whole Blood 114 mg/dL (70-110)
[2024-08-01] MEDS ORDERED: DOBUTamine DRIP for NUC MED 500 MG in DEXTROSE/WATER 1 250ML.BAG IV PRN (06:00)
[2024-08-01] MEDS: INSULIN ASPART (NovoLOG) 100 UNIT/ML VIAL SQ SCH (07:42)
[2024-08-01] MEDS: traMADol 50 MG TAB PO PRN (07:46)
[2024-08-01] MEDS: PANTOPRAZOLE 40 MG TABLET PO SCH (07:48)
[2024-08-01] MEDS ORDERED: DOBUTamine DRIP for NUC MED 500 MG/250 ML BAG IV ONE (08:00)
[2024-08-01 08:08] VITALS: PULSE 86; RESP 18; TEMP 98.3
--- NOTE | 2024-08-01 09:49 | P.PN ---
Subjective Progress Note Date: 08/01/24 Consult reason: chest pain (Palpitations) History of present illness: This is 49-year-old male previously seen by Dr. Peace Ac and now follows with [facility] computer systems architect. He has a past medical of atrial fibrillation diagnosed 2 years ago, hypertension, hyperlipidemia, diabetes mellitus type 2. We have been asked to evaluate the patient for chest pain and palpitations. Patient states that on Wednesday afternoon he started feeling a fluttering feeling in his chest and skipping beats. On Wednesday morning it continued and he left a message at his PCP office and also called his computer systems architect at [facility] and left a message. He did hear back by Wednesday and then he came in to the hospital for further evaluation. On presenta tion, patient was in a sinus rhythm on EKG. He feels that the atrial fibrillation seem to have lightened and was only brief once he arrived here to the hospital. With his computer systems architect, he has discussed flecainide and adjusting the beta-chika and if those medications do not work, consider ablation. He denies any history of coronary artery disease. Patient did eat breakfast this morning. EKG: Sinus rhythm at 90 bpm Chest x-ray: No acute process. Laboratory studies: WBC 8.4, hemoglobin 14.9. Sodium 139, potassium 4.3, BUN 26 creatinine 0.8. Blood sugar 161. Magnesium 1.8. AST 93, ALT 76. Troponin negative x 4. TSH 1.51. Home cardiac medications: Eliquis 5 mg twice daily, benazepril 10 mg daily, Bumex 2 mg daily, Zetia 10 mg daily, flecainide 50 mg every 12 hours, Toprol XL 50 mg twice daily. Echocardiogram performed 07/22/2022 revealed EF of 45%, moderate to severely increased left ventricular wall thickness, mild increased left atrial size, mild mitral regurgitation, no pericardial effusion. 08/01 Patient is seen today on the observation unit. He denies having any chest pain. He is scheduled for dobutamine stress echocardiogram today. Blood pressure 150/80, heart rate 86, pulse ox 97% on room air. Echocardiogram has been obtained and report is pending. Repeat EKG shows no acute ST-T wave changes. All troponins have been negative. Physical examination: Gen: This is a 49-year-old morbidly obese male in no acute distress VS: reviewed HEENT: Head is atraumatic, normocephalic. Pupils equal, round. Sclerae is anicteric. NECK: Supple. No JVD. LUNGS: Clear to auscultation. No wheezes or rhonchi. No intercostal retractions. HEART: Regular rate and rhythm. No murmur. ABDOMEN: Soft No tenderness. EXTREMITIES: No pedal edema. No calf tenderness. NEUROLOGICAL: Patient is awake, alert and oriented x3. Assessment: Paroxysmal atrial fibrillation with possible episode of A-fib with RVR at home Atypical chest pain, acute coronary syndrome ruled out Hypertension Hyperlipidemia Diabetes mellitus type 2 Plan: Continue patient's home cardiac medications and increase flecainide to 100 mg twice daily Continue telemetry monitoring Schedule patient for dobutamine stress echocardiogram on Wednesday Obtain 2-D echocardiogram and Doppler report Obtain patient records from [facility] If dobutamine stress echocardiogram is unremarkable, patient is cleared for discharge and may follow-up with his primary computer systems architect in 1 to 2 weeks. Nurse practitioner note has been reviewed, I agree with documented findings and plan of care. Patient was seen and examined. Objective - Vital Signs Vital signs: Vital Signs Temp 98.0 F 08/01/24 02:00 Pulse 80 08/01/24 02:00 Resp 17 08/01/24 02:00 BP 130/74 08/01/24 02:00 Pulse Ox 96 08/01/24 02:00 FiO2 Intake & Output 07/31/24 08/01/24 08/01/24 18:59 06:59 18:59 Weight 138.346 kg Other: # Voids 3 - Labs CBC & Chem 7: 07/30/24 20:15 07/30/24 20:15 Labs: Abnormal Lab Results - Last 24 Hours (Table) 07/31/24 08/01/24 Range/Units 20:22 05:51 POC Glucose (mg/dL) 185 H 114 H (70-110) mg/dL
--- NOTE | 2024-08-01 10:08 | CA ---
Transthoracic Echo Report Name: Sarath Bob Age: 49 Gender: M : 1975 Exam Date: 07/31/2024 14:05 Exam Location: [facility] Ht (in): 68 Wt (lb): 305 Ordering Physician: Nisa Luong Attending/Referring Phys: [id number], Ag Costumed Character Wanda Sharpe RDCS Procedure CPT: Indications: Chest Pain Cardiac Hx: Technical Quality: Technically difficult study Contrast 1: Definity Total Dose (mL): 2 Contrast 2: Total Dose (mL): MEASUREMENTS (Male / Female) Normal Values 2D ECHO LV Diastolic Diameter PLAX 5.1 cm 4.2 - 5.9 / 3.9 - 5.3 cm LV Systolic Diameter PLAX 4.3 cm IVS Diastolic Thickness 1.3 cm 0.6 - 1.0 / 0.6 - 0.9 cm LVPW Diastolic Thickness 1.4 cm 0.6 - 1.0 / 0.6 - 0.9 cm LV Relative Wall Thickness 0.5 RV Internal Dim ED PLAX 3.3 cm LA Volume 77.9 cm??? 18 - 58 / 22 - 52 cm??? LA Volume Index 29.4 cm???/m??? 16 - 28 cm???/m??? M-MODE Aortic Root Diameter MM 3.1 cm LA Systolic Diameter MM 4.7 cm LA Ao Ratio MM 1.5 AV Cusp Separation MM 2.0 cm DOPPLER AV Peak Velocity 146.1 cm/s AV Peak Gradient 8.5 mmHg AV Mean Velocity 99.4 cm/s AV Mean Gradient 4.3 mmHg AV Velocity Time Integral 26.1 cm LVOT Peak Velocity 94.5 cm/s LVOT Peak Gradient 3.6 mmHg LVOT Velocity Time Integral 19.9 cm MV Area PHT 3.4 cm??? Mitral E Point Velocity 102.4 cm/s Mitral A Point Velocity 82.3 cm/s Mitral E to A Ratio 1.2 MV Deceleration Time 221.2 ms MV E' Velocity 6.4 cm/s Mitral E to MV E' Ratio 16.0 FINDINGS Left Ventricle Mildly increased left ventricular wall thickness. Left ventricular cavity size normal. No obvious regional wall motion abnormalities. Left ventricular ejection fraction is estimated at 55 %. Grade 1 diastolic dysfunction. Right Ventricle Normal right ventricular size and function. Right ventricular systolic pressure within normal limits. Right Atrium Normal right atrial size. Left Atrium Mildly increased left atrial volume. Mildly increased left atrial area. Mitral Valve Structurally normal mitral valve. Mild mitral regurgitation. Aortic Valve No aortic valve stenosis or regurgitation. Tricuspid Valve Structurally normal tricuspid valve. Mild tricuspid regurgitation. Pulmonic Valve Structurally normal pulmonic valve. Pericardium No pericardial effusion. Aorta Normal size aortic root and proximal ascending aorta. CONCLUSIONS Normal LV function Previewed by: Dr. Zia Ac MD (Electronically Signed) Final Date: 01 August 2024 10:08
--- NOTE | 2024-08-01 11:32 | CA ---
Dobutamine Stress Echocardiogram Report Saarth Bob Age: 49 Gender: M : 1975 Exam Date: 08/01/2024 10:27 Exam Location: [facility] Ordering Physician: Nisa Luong Referring Physician: Ag WHITLOCK Decision Unit Rn: SHIVAM, Technologist: Ht (in): 68 Wt (lb): 305 Procedure CPT: Indication: Chest Pain ICD-9 Codes: Rhythm: Patient History: Chest pain and shortness of breath Cardiac Medications: Medications in past 24 hours: Contrast: Definity Total Dose (mL): 2 Stress Results Protocol: Dobutamine Peak Dose (???g/kg/min): 30 Duration (min:sec): Atropine:(mg) Target HR: 145 Double Product: [id number] Resting HR: 76 Resting BP: 120 / 83 Peak HR: 152 Peak BP: 164 / 51 Max Predicted HR: 170 89 % Max Predicted HR Stress Summary: BP Response: Reason for Termination: Target HR Cardiac Symptoms: NO SYMPTOMS ECG Analysis Resting EKG: Normal sinus rhythm normal axis normal intervals Stress EKG: Patient was given intravenous dobutamine over a period of 9 minutes as per protocol did not have chest pain or diagnostic ST segment depression Arrhythmia: Echo Analysis Base Echo Analysis: Normal left ventricular size wall motion and systolic function technically suboptimal secondary to poor echo windows contrast agent was used for endocardial definition Low Echo Anaylsis: Normal Peak Echo Analysis: Normal hyperdynamic response Recovery Echo: Normal MEASUREMENTS (Male/Female) Normal Values CONCLUSIONS Negative dobutamine stress echo Dr. Zia Ac MD (Electronically Signed) Final Date: 01 August 2024 11:30
[2024-08-01 12:53] LABS: Glucose,Whole Blood 193 mg/dL (70-110)
[2024-08-01] MEDS: INSULIN DETEMIR (LEVEMIR) 100 UNIT/ML SYR SQ SCH (13:07)
[2024-08-01 14:56] VITALS: BP 138/77
--- NOTE | 2024-08-01 22:09 | HP ---
HISTORY AND PHYSICAL CHIEF COMPLAINT: Palpitations. HISTORY OF PRESENT ILLNESS: This is another admission for this 49-year-old white male who has had cardiac issues on and off and follows in [place]. He is also diabetic. He has had a history of hypertension. He thought he was having palpitations. He has had atrial fib in the past and he was concerned that it had recurred. He had slight discomfort in the chest, but no diaphoresis or significant shortness of breath. REVIEW OF SYSTEMS: He has had no fever, chills, orthopnea, PND, etc. He has had no urinary issues. Past medical history, family history, personal and social histories are all otherwise unremarkable and noncontributory. PHYSICAL EXAMINATION: VITAL SIGNS: Normal. He is in sinus rhythm with occasional PACs. HEAD, EARS, EYES, NOSE, MOUTH, AND THROAT: Normal. NECK: Neck veins are not distended. Thyroid is not enlarged. CHEST: Clear. CARDIAC: Normal. ABDOMEN: Slightly protuberant, soft and nontender. EXTREMITIES: Normal. He does have lower extremity edema. NEUROLOGICAL: He is intact. ASSESSMENT: He is admitted to the hospital with diagnoses of, 1. Palpitations. 2. History of atrial fibrillation. 3. History of hypertension. 4. History of insulin-dependent diabetes. 5. History of hypertension. PLAN: 1. Bed rest. 2. IV fluids. 3. Telemetry. 4. Consult Cardiology. 5. Control diabetes. MMODL / FLORYN: [id number] /
--- NOTE | 2024-08-02 00:15 | PN ---
PROGRESS NOTE DATE OF SERVICE: 07/31/2024 CHIEF COMPLAINT: Palpitations. HISTORY OF PRESENT ILLNESS: This gentleman is doing well. He denies chest pain, shortness of breath, diaphoresis, etc., His telemetry reveals sinus rhythm with occasional PACs. PHYSICAL EXAMINATION: CHEST: Clear. CARDIAC: Normal. ABDOMEN: Soft and nontender. IMPRESSION: 1. Palpitations. 2. Premature atrial contractions. 3. History of atrial fibrillation. 4. Hypertension. 5. Diabetes. PLAN: Admit and follow on telemetry with Cardiology consult. MMODL / IJN: [id number] /
--- NOTE | 2024-08-02 06:25 | DS ---
DISCHARGE SUMMARY CHIEF COMPLAINT: Palpitations. HISTORY OF PRESENT ILLNESS AND PHYSICAL EXAM: Details of this man's history and physical can be found in the initial workup. LABORATORY STUDIES: While he was in the hospital, he had laboratory studies, details of which can be found in the laboratory section of his chart. COURSE IN THE HOSPITAL: After admission, he was placed on bedrest, started on intravenous fluids and telemetry. Seen by Cardiology. He remained in sinus rhythm. His blood sugars were slightly elevated and these were controlled with insulin. He was released by Cardiology. It was felt that he could be discharged on the to outpatient followup and there will be no change in his medication. FINAL DIAGNOSES: 1. Palpitations. 2. Premature atrial contractions. 3. History of atrial fibrillation. 4. Cardiomyopathy. 5. Hypertension. 6. Insulin-dependent diabetes. OPERATIONS: None. CONSULTATIONS: Cardiology. KENYATTA / RANDI: [id number] /
== END 2024-08-01 16:07 | disposition home or self-care (01) ==
LOC: EC 19:44 → 6NMEDSUR 21:29
PROVIDERS: ADMIT Family Medicine; ATTEND Family Medicine
DX: I49.1 Atrial premature depolarization (principal); I48.0 Paroxysmal atrial fibrillation; I47.20 Ventricular tachycardia, unspecified; I42.9 Cardiomyopathy, unspecified; E11.9 Type 2 diabetes mellitus without complications; I10 Essential (primary) hypertension; I34.0 Nonrheumatic mitral (valve) insufficiency; E78.5 Hyperlipidemia, unspecified; F17.200 Nicotine dependence, unspecified, uncomplicated; F41.9 Anxiety disorder, unspecified; Z79.4 Long term (current) use of insulin; Z79.01 Long term (current) use of anticoagulants; Z79.1 Long term (current) use of non-steroidal anti-inflammatories (NSAID); Z79.84 Long term (current) use of oral hypoglycemic drugs; Z79.899 Other long term (current) drug therapy; Z88.2 Allergy status to sulfonamides; Z88.8 Allergy status to other drugs, medicaments and biological substances; Z82.49 Family history of ischemic heart disease and other diseases of the circulatory system
CPT/HCPCS: 96361 ×2; 96374; 99285; 36415; 94760; 93005 ×2; 80053; 84443; 83735; 84484 ×2; 85025; 85610; 85730; 83036; 71046; G0378 ×3; C8929; C8930; J1250; Q9957; J2470; 93306; 93351